=== PATIENT | male | born 1995 | race Caucasian/White ===

== ENCOUNTER 2020-09-02 07:54 | Outpatient (REF) | payer OTHER, SELFPAY ==
[2020-09-02 11:21] LABS: Free T4 (Free Thyroxine) 1.27 ng/dL (0.71-1.85); Thyroid Stimulating Hormone 2.44 mIU/mL (0.32-4.0)
== END 2020-09-02 07:55 | disposition home or self-care (01) ==
LOC: HO.10HDL 07:54
PROVIDERS: PCP Internal Medicine Medical Oncology; Visit Provider Internal Medicine
DX: E55.9 Vitamin D deficiency, unspecified (principal); E03.9 Hypothyroidism, unspecified; R91.1 Solitary pulmonary nodule; Z85.850 Personal history of malignant neoplasm of thyroid
CPT/HCPCS: 84439; 84443

== ENCOUNTER 2020-10-12 08:31 | Outpatient (REF) | payer OTHER, SELFPAY ==
--- NOTE | 2020-10-12 08:48 | US_ITS ---
EXAMINATION: US SOFT TISSUE HEAD AND NECK CLINICAL INFORMATION: History of malignant neoplasm of thyroid. Status post thyroidectomy. COMPARISON: None TECHNIQUE: Routine imaging of the anterior neck was performed. FINDINGS: RIGHT NECK: 1. Level 5A lymph node measuring 1.0 x 0.33 x 0.90 cm appears normal. 2. Level 2 lymph node measuring 2.0 x 0.54 x 1.4 cm and appears normal. 3. Level 2 lymph node measuring 0.60 x 0.25 x 0.52 cm and appears normal. 4. Level 3 lymph node measuring 0.80 x 0.30 x 0.80 and appears normal. 5. Level 1B lymph node measuring 1.1 cm and appearing normal. LEFT NECK: 1. Level 5A lymph node measuring 1.0 x 0.22 x 0.50 cm and appears normal. 2. Level 5B lymph node measuring 1.1 x 0.21 x 0.40 cm and appears normal. 3. Level 2 lymph node measuring 1.3 x 0.53 x 0.50 cm and appears normal. 4. Level 2 lymph node measuring 0.10 x 0.42 x 0.62 cm and appears normal. 5. Level 3 lymph node measuring 2.1 x 0.51 x 0.82 cm and appears normal. 6. Level 1B lymph node measuring 1.1 x 0.25 x 1.1 cm and appears normal. US/US soft tiss head and/or neck IMPRESSION: Multiple bilateral neck lymph nodes are normal size and have normal ultrasound appearance.
== END 2020-10-12 08:32 | disposition home or self-care (01) ==
LOC: HO.US 08:31
PROVIDERS: PCP Internal Medicine Medical Oncology; Visit Provider Internal Medicine
DX: Z85.850 Personal history of malignant neoplasm of thyroid (principal); E89.0 Postprocedural hypothyroidism
CPT/HCPCS: 76536

== ENCOUNTER → 2020-11-21 09:12 | Outpatient (BNVA) | payer OTHER, SELFPAY | PROVIDERS: PCP Internal Medicine Medical Oncology; Visit Provider Internal Medicine | DX: Z76.89 Persons encountering health services in other specified circumstances (principal) ==

== ENCOUNTER 2020-11-22 10:06 | Outpatient (REF) | payer OTHER, SELFPAY ==
[2020-11-22 14:46] LABS: Free T4 (Free Thyroxine) 1.18 ng/dL (0.71-1.85); Thyroid Stimulating Hormone 2.64 uIU/mL (0.32-4.0); Vitamin D 25-OH Total 27.5 ng/mL (>30)
== END 2020-11-22 10:07 | disposition home or self-care (01) ==
LOC: HO.10HDL 10:06
PROVIDERS: Visit Provider Internal Medicine
DX: E89.0 Postprocedural hypothyroidism (principal); E55.9 Vitamin D deficiency, unspecified
CPT/HCPCS: 36415; 82306; 84439; 84443

== ENCOUNTER 2020-11-23 08:19 | Outpatient (REF) | payer OTHER, SELFPAY ==
--- NOTE | 2020-11-23 08:22 | CT_ITS ---
EXAMINATION: CT CHEST WITHOUT CONTRAST CLINICAL INFORMATION: Pulmonary nodule. COMPARISON: None TECHNIQUE: Multidetector volumetric CT imaging of the chest was done. Axial MIP volume rendering provided. Sagittal and coronal reformatted images were obtained. This CT examination was performed using dose optimization techniques as appropriate, variously including the following: *Automated exposure control *Adjustment of mA and/or kV according to patient size (this includes techniques or standardized protocols for targeted exams where dose is matched to indication/reason for exam; i.e. extremities or head) *Use of iterative reconstruction technique DLP: 144 mGy-cm FINDINGS: TOY ASSEMBLER: Unremarkable chest. LUNGS: The lungs are well expanded and clear of acute pneumonic process. There is a 1 mm radiopaque calcified nodule left upper lobe axial image 193/5, 2 mm calcified nodule left anterior apex axial image 98/5, 2 mm calcified nodule left lower lobe lateral basal segment axial image 396/5. No noncalcified nodules seen. MEDIASTINUM: There are surgical gumaro seen in the thyroid bed likely from previous thyroid resection. The central trachea and bronchi are widely patent. Heart size and the great vessels are normal in caliber. No abnormal mediastinal or hilar lymph nodes seen. No pericardial effusion seen. PLEURA: There is no pleural effusion. No pleural mass or thickening. AXILLA: There are small shotty bilateral axillary lymph nodes. The chest wall appears unremarkable. UPPER ABDOMEN: Visualized liver, spleen, pancreas, and bilateral adrenal glands are unremarkable. OSSEOUS STRUCTURES: No lytic or sclerotic process seen. CT/CT chest wo con IMPRESSION: Multiple small calcified pulmonary nodules. No noncalcified nodules seen. No abnormal mediastinal or hilar adenopathy seen.
== END 2020-11-23 08:20 | disposition home or self-care (01) ==
LOC: HO.CT 08:19
PROVIDERS: PCP Internal Medicine Medical Oncology; Visit Provider Hospitalist
DX: R91.8 Other nonspecific abnormal finding of lung field (principal); R91.1 Solitary pulmonary nodule; Z85.850 Personal history of malignant neoplasm of thyroid
CPT/HCPCS: 71250

== ENCOUNTER → 2020-12-12 09:53 | Outpatient (BNVA) | payer OTHER, SELFPAY | PROVIDERS: PCP Internal Medicine Medical Oncology; Visit Provider Internal Medicine ==

== ENCOUNTER → 2020-12-13 09:56 | Outpatient (BNVA) | payer OTHER, SELFPAY | PROVIDERS: PCP Internal Medicine Medical Oncology; Visit Provider Internal Medicine Endocrinology, Diabetes & Metabolism ==

== ENCOUNTER 2020-12-14 07:52 | Outpatient (REF) | payer OTHER, SELFPAY ==
[2020-12-14 12:29] LABS: Thyroid Stimulating Hormone > 100.00 uIU/mL (0.32-4.0)
[2020-12-15 06:28] LABS: Thyroglobulin <0.1 ng/mL; Thyroglobulin Antibodies 101 IU/mL (< or = 1)
== END 2020-12-14 07:53 | disposition home or self-care (01) ==
LOC: HO.10HDL 07:52
PROVIDERS: Visit Provider Internal Medicine
DX: Z85.850 Personal history of malignant neoplasm of thyroid (principal)
CPT/HCPCS: 36415; 84432; 84443; 86800

== ENCOUNTER 2020-12-16 08:39 | Outpatient (REF) | payer OTHER, SELFPAY ==
[2020-12-19 22:08] LABS: Thyroglobulin <0.1 ng/mL; Thyroglobulin Antibodies 119 IU/mL (< or = 1)
== END 2020-12-16 08:40 | disposition home or self-care (01) ==
LOC: HO.10HDL 08:39
PROVIDERS: Visit Provider Internal Medicine
DX: Z85.850 Personal history of malignant neoplasm of thyroid (principal)
CPT/HCPCS: 36415; 84432; 84443; 86800

== ENCOUNTER → 2020-12-27 09:06 | Outpatient (BNVA) | payer OTHER, SELFPAY | PROVIDERS: PCP Internal Medicine Medical Oncology; Visit Provider Hospitalist ==

== ENCOUNTER 2021-01-04 08:43 | Outpatient (REF) | payer OTHER, SELFPAY ==
[2021-01-04 11:04] LABS: Free T4 (Free Thyroxine) 1.38 ng/dL (0.71-1.85); Thyroid Stimulating Hormone 0.57 uIU/mL (0.32-4.0)
== END 2021-01-04 08:44 | disposition home or self-care (01) ==
LOC: HO.10HDL 08:43
PROVIDERS: Visit Provider Internal Medicine
DX: E89.0 Postprocedural hypothyroidism (principal)
CPT/HCPCS: 36415; 84439; 84443

== ENCOUNTER → 2021-01-23 10:33 | Outpatient (BNVA) | payer OTHER, SELFPAY | PROVIDERS: PCP Internal Medicine Medical Oncology; Visit Provider Internal Medicine ==

== ENCOUNTER → 2021-03-16 08:31 | Outpatient (BNVA) | payer OTHER, SELFPAY | PROVIDERS: PCP Internal Medicine Medical Oncology; Visit Provider Internal Medicine ==

== ENCOUNTER 2021-03-16 11:18 | Outpatient (REF) | payer OTHER, SELFPAY ==
[2021-03-16 14:58] LABS: Free T4 (Free Thyroxine) 1.26 ng/dL (0.71-1.85); Thyroid Stimulating Hormone 0.63 uIU/mL (0.32-4.0); Vitamin D 25-OH Total 35.6 ng/mL (>30)
[2021-03-17 13:27] LABS: Thyroglobulin <0.1 ng/mL; Thyroglobulin Antibodies 104 IU/mL (< or = 1)
== END 2021-03-16 11:19 | disposition home or self-care (01) ==
LOC: HO.10HDL 11:18
PROVIDERS: Visit Provider Internal Medicine
DX: E55.9 Vitamin D deficiency, unspecified (principal); Z85.850 Personal history of malignant neoplasm of thyroid
CPT/HCPCS: 36415; 82306; 84432; 84439; 84443; 86800

== ENCOUNTER 2021-05-19 11:06 | Outpatient (REF) | payer OTHER, SELFPAY ==
[2021-05-19 12:19] LABS: Thyroid Stimulating Hormone 0.13 uIU/mL (0.32-4.0)
[2021-05-20 09:52] LABS: Thyroglobulin <0.1 ng/mL; Thyroglobulin Antibodies 83 IU/mL (< or = 1)
== END 2021-05-19 11:07 | disposition home or self-care (01) ==
LOC: HO.LAB 11:06
PROVIDERS: PCP Internal Medicine Medical Oncology; Visit Provider Internal Medicine
DX: Z85.850 Personal history of malignant neoplasm of thyroid (principal)
CPT/HCPCS: 36415; 84432; 84443; 86800

== ENCOUNTER → 2021-06-07 08:19 | Outpatient (BNVA) | payer OTHER, SELFPAY | PROVIDERS: PCP Internal Medicine Medical Oncology; Visit Provider Internal Medicine ==

== ENCOUNTER → 2021-07-10 10:24 | Outpatient (BNVA) | payer OTHER, SELFPAY | PROVIDERS: PCP Internal Medicine Medical Oncology; Visit Provider Internal Medicine ==

== ENCOUNTER → 2021-07-11 08:58 | Outpatient (BNVA) | payer OTHER, SELFPAY | PROVIDERS: PCP Internal Medicine Medical Oncology; Visit Provider Nurse Practitioner Gerontology ==

== ENCOUNTER 2021-07-12 08:43 | Outpatient (REF) | payer OTHER, SELFPAY ==
[2021-07-12 13:45] LABS: Thyroid Stimulating Hormone > 100.00 uIU/mL (0.32-4.0)
[2021-07-13 22:56] LABS: Thyroglobulin <0.1 ng/mL; Thyroglobulin Antibodies 77 IU/mL (< or = 1)
== END 2021-07-12 08:44 | disposition home or self-care (01) ==
LOC: HO.10HDL 08:43
PROVIDERS: Visit Provider Internal Medicine
DX: Z85.850 Personal history of malignant neoplasm of thyroid (principal)
CPT/HCPCS: 36415; 84432; 84443; 86800

== ENCOUNTER 2021-07-14 09:01 | Outpatient (REF) | payer OTHER, SELFPAY ==
[2021-07-14 11:12] LABS: Thyroid Stimulating Hormone 11.12 uIU/mL (0.32-4.0)
[2021-07-19 20:21] LABS: Thyroglobulin Antibodies 75 IU/mL (< or = 1)
[2021-07-19 20:26] LABS: Thyroglobulin <0.1 ng/mL
== END 2021-07-14 09:02 | disposition home or self-care (01) ==
LOC: HO.10HDL 09:01
PROVIDERS: Visit Provider Internal Medicine
DX: Z85.850 Personal history of malignant neoplasm of thyroid (principal)
CPT/HCPCS: 36415; 84432; 84443; 86800

== ENCOUNTER 2021-09-12 12:29 | Outpatient (REF) | payer OTHER, SELFPAY ==
[2021-09-12 14:57] LABS: Free T4 (Free Thyroxine) 1.14 ng/dL (0.71-1.85); Thyroid Stimulating Hormone 1.43 uIU/mL (0.32-4.0)
== END 2021-09-12 12:30 | disposition home or self-care (01) ==
LOC: HO.10HDL 12:29
PROVIDERS: Visit Provider Internal Medicine
DX: Z85.850 Personal history of malignant neoplasm of thyroid (principal)
CPT/HCPCS: 36415; 84439; 84443

== ENCOUNTER 2021-11-29 09:27 | Outpatient (REF) | payer OTHER, SELFPAY ==
--- NOTE | ~2021-11-29 | CT_ITS ---
EXAMINATION: CT CHEST WITHOUT CONTRAST CLINICAL INFORMATION: Follow-up pulmonary nodules COMPARISON: Previous chest CT November 2020 TECHNIQUE: Multidetector volumetric CT imaging of the chest was done. Axial MIP volume rendering provided. Sagittal and coronal reformatted images were obtained. This CT examination was performed using dose optimization techniques as appropriate, variously including the following: *Automated exposure control *Adjustment of mA and/or kV according to patient size (this includes techniques or standardized protocols for targeted exams where dose is matched to indication/reason for exam; i.e. extremities or head) *Use of iterative reconstruction technique DLP: 151 mGy-cm FINDINGS: MANAGER OF REGULATORY AFFAIRS: Unremarkable LUNGS: The small calcified pulmonary nodules are stable. Largest pulmonary nodule measures 3 mm the left upper lobe axial image 167 series 7 and left lower lobe axial image 530 series 7. No new nodule is seen. MEDIASTINUM: The thyroid gland has been removed. The mediastinum is normal. PLEURA: There is no pleural effusion. No pleural mass or thickening. AXILLA: There are small bilateral axillary lymph nodes. No enlarged lymph nodes or chest wall mass seen. UPPER ABDOMEN: Unremarkable. OSSEOUS STRUCTURES: Unremarkable. CT/CT chest wo con IMPRESSION: Stable small calcified pulmonary nodules probably representing calcified granulomas. Fleischner guidelines were followed.
== END 2021-11-29 09:28 | disposition home or self-care (01) ==
LOC: HO.CT 09:27
PROVIDERS: PCP Internal Medicine Medical Oncology; Visit Provider Hospitalist
DX: R91.8 Other nonspecific abnormal finding of lung field (principal); E89.0 Postprocedural hypothyroidism; Z85.850 Personal history of malignant neoplasm of thyroid
CPT/HCPCS: 71250

== ENCOUNTER → 2021-12-27 08:55 | Outpatient (BNVA) | payer OTHER, SELFPAY | PROVIDERS: PCP Internal Medicine Medical Oncology; Visit Provider Hospitalist ==

== ENCOUNTER 2022-03-09 09:53 | Outpatient (REF) | payer OTHER, SELFPAY ==
[2022-03-09 12:10] LABS: Thyroid Stimulating Hormone 0.81 uIU/mL (0.32-4.0)
[2022-03-12 18:26] LABS: Thyroglobulin Antibodies 84 IU/mL (< or = 1)
[2022-03-12 21:31] LABS: Thyroglobulin <0.1 ng/mL
== END 2022-03-09 09:54 | disposition home or self-care (01) ==
LOC: HO.HMGCLDS 09:53
PROVIDERS: Visit Provider Internal Medicine
DX: Z85.850 Personal history of malignant neoplasm of thyroid (principal)
CPT/HCPCS: 36415; 84432; 84439; 84443; 86800

== ENCOUNTER → 2022-03-12 09:49 | Outpatient (BNVA) | payer OTHER, SELFPAY | PROVIDERS: PCP Internal Medicine Medical Oncology; Visit Provider Internal Medicine | DX: Z13.89 Encounter for screening for other disorder (principal) ==

== ENCOUNTER 2022-06-27 16:20 | Outpatient (REF) | payer OTHER, SELFPAY ==
--- NOTE | ~2022-06-27 | US_ITS ---
EXAMINATION: US SOFT TISSUE NECK CLINICAL INFORMATION: Personal history of malignant neoplasm of thyroid. COMPARISON: Soft tissue head and neck 10/12/2020. Ultrasound soft tissue head/neck thyroid dated 11/24/2019. TECHNIQUE: Ultrasound of the neck soft tissues is performed with high- frequency villanueva-scale imaging and color Doppler. FINDINGS: THYROID BED: Prior thyroidectomy. No residual thyroid tissue demonstrated in the thyroid bed. No cystic or solid nodules demonstrated in the thyroid bed. RIGHT NECK SOFT TISSUES: Scattered architecturally normal nodes are present. The nodes show normal fatty hilus, normal cortical thickness, and no cystic change or calcification. No abnormal color flow. The largest nodes are as follows: Level 2: 1.0 x 0.3 x 0.6 cm. Normal bernie architecture. Previously measured 0.6 x 0.2 x 0.5 cm. Level 3: 2.7 x 0.9 x 0.9 cm. Abnormal bernie architecture. Not seen previously. Level 3: 1.6 x 0.4 x 0.7 cm. Normal bernie architecture. Previously measured 0.9 x 0.4 x 0.4 cm. Level 3: 0.9 x 0.4 x 0.4 cm. Normal bernie architecture. Level 4: 1.1 x 0.3 x 0.4 cm. Normal bernie architecture. Level 5A: Measures 0.8 x 0.3 x 0.3 cm. Normal bernie architecture. Level 5B: 1.1 x 0.4 x 0.5 cm. Normal bernie architecture. LEFT NECK SOFT TISSUES: Scattered architecturally normal nodes are present. The nodes show normal fatty hilus, normal cortical thickness, and no cystic change or calcification. No abnormal color flow. The largest nodes are as follows: Level 2: 4.2 x 0.9 x 1.1 cm. Abnormal bernie architecture. Level 3: 1.9 x 0.4 x 0.4 cm. Abnormal bernie architecture. Level 4: 1.7 x 1.6 x 0.6 cm. Abnormal bernie architecture. US/US soft tiss head and/or neck IMPRESSION: 1. No residual thyroid seen in the thyroid bed following thyroidectomy. There are 3 abnormal-appearing left neck lymph nodes, the largest measuring 4.2 cm level 2. Of several lymph nodes seen in the right neck level 3 right neck lymph node measuring 2.7 cm has abnormal architecture.We can biopsy by Ultrasound. 2. If clinically indicated further evaluation of the neck soft tissues and nodes may be performed with CT soft tissue neck with intravenous contrast.
== END 2022-06-27 16:21 | disposition home or self-care (01) ==
LOC: HO.US 16:20
PROVIDERS: Visit Provider Internal Medicine
DX: Z85.850 Personal history of malignant neoplasm of thyroid (principal)
CPT/HCPCS: 76536

== ENCOUNTER 2022-09-14 06:11 | Outpatient (REF) | payer OTHER, SELFPAY ==
[2022-09-14 12:40] LABS: Free T4 (Free Thyroxine) 1.21 ng/dL (0.71-1.85); Thyroid Stimulating Hormone 0.69 uIU/mL (0.32-4.0)
[2022-09-17 21:36] LABS: Thyroglobulin <0.1 ng/mL; Thyroglobulin Antibodies 66 IU/mL (< or = 1)
== END 2022-09-14 06:12 | disposition home or self-care (01) ==
LOC: HO.HMGCLDS 06:11
PROVIDERS: PCP Internal Medicine Medical Oncology; Visit Provider Internal Medicine
DX: E89.0 Postprocedural hypothyroidism (principal)
CPT/HCPCS: 36415; 84432; 84439; 84443; 86800

== ENCOUNTER 2022-10-26 07:46 | Outpatient (REF) | payer OTHER, SELFPAY ==
--- NOTE | ~2022-10-26 | CT_ITS ---
EXAMINATION: CT CHEST WITHOUT CONTRAST CLINICAL INFORMATION: Solitary pulmonary nodule. COMPARISON: CT chest 11/29/2021 TECHNIQUE: Multidetector volumetric CT imaging of the chest was done. Axial MIP volume rendering provided. Sagittal and coronal reformatted images were obtained. This CT examination was performed using dose optimization techniques as appropriate, variously including the following: *Automated exposure control *Adjustment of mA and/or kV according to patient size (this includes techniques or standardized protocols for targeted exams where dose is matched to indication/reason for exam; i.e. extremities or head) *Use of iterative reconstruction technique DLP: 147 mGy-cm FINDINGS: GUEST ROOM INSPECTOR: Unremarkable. LUNGS: The lungs are well-expanded and clear of acute pneumonic process. There are small scattered calcified pulmonary nodules. Largest 2 mm pulmonary nodule left lower lobe axial image 52/4 and and 3 mm calcified nodule left upper lobe, axial image 121/6. No noncalcified nodules seen. MEDIASTINUM: Central trachea and the bronchi is widely patent. There are small gumaro in the region of thyroid gland likely previous resection. No abnormal size mediastinal or hilar lymph nodes seen. There is residual thymus in the anterior mediastinum. Heart size and the great vessels are normal caliber. There is no pericardial effusion. CORONARY ARTERY CALCIFICATION: None visualized on this study. PLEURA: There is no pleural effusion. No pleural mass or thickening. AXILLA: There are small shotty lymph nodes in bilateral axilla. The chest wall is unremarkable. UPPER ABDOMEN: Visualized liver, spleen, pancreas and bilateral adrenal glands unremarkable. OSSEOUS STRUCTURES: Unremarkable. CT/CT chest wo IV con IMPRESSION: 1. Small calcified pulmonary nodules likely granulomas. No noncalcified new nodules seen. 2. No abnormal mediastinal or axillary lymphadenopathy. Fleischner guidelines were followed.
== END 2022-10-26 07:47 | disposition home or self-care (01) ==
LOC: HO.CT 07:46
PROVIDERS: Visit Provider Hospitalist
DX: R91.1 Solitary pulmonary nodule (principal)
CPT/HCPCS: 71250

== ENCOUNTER → 2022-10-29 08:55 | Outpatient (BNVA) | payer OTHER, SELFPAY | PROVIDERS: PCP Internal Medicine Medical Oncology; Visit Provider Internal Medicine | DX: Z85.850 Personal history of malignant neoplasm of thyroid (principal) | CPT/HCPCS: 96372 ==

== ENCOUNTER → 2022-10-30 08:57 | Outpatient (BNVA) | payer OTHER, SELFPAY | PROVIDERS: PCP Internal Medicine Medical Oncology; Visit Provider Internal Medicine Endocrinology, Diabetes & Metabolism | DX: Z85.850 Personal history of malignant neoplasm of thyroid (principal) | CPT/HCPCS: 96372 ==

== ENCOUNTER 2022-10-31 07:52 | Outpatient (REF) | payer OTHER, SELFPAY ==
[2022-10-31 11:53] LABS: Thyroid Stimulating Hormone > 100.00 uIU/mL (0.32-4.0)
[2022-11-21 13:24] LABS: Thyroglobulin Antibody 44 IU/mL (<=1); Thyroglobulin LC/MS/MS <0.4 ng/mL (Athyrotic: <0)
== END 2022-10-31 07:53 | disposition home or self-care (01) ==
LOC: HO.10HDL 07:52
PROVIDERS: Visit Provider Internal Medicine
DX: Z85.850 Personal history of malignant neoplasm of thyroid (principal)
CPT/HCPCS: 36415; 84432; 84443; 86800

== ENCOUNTER 2022-11-02 08:42 | Outpatient (REF) | payer OTHER, SELFPAY ==
[2022-11-02 11:58] LABS: Thyroid Stimulating Hormone 6.94 uIU/mL (0.32-4.0)
[2022-11-22 13:03] LABS: Thyroglobulin Antibody 45 IU/mL (<=1); Thyroglobulin LC/MS/MS <0.4 ng/mL (Athyrotic: <0)
== END 2022-11-02 08:43 | disposition home or self-care (01) ==
LOC: HO.10HDL 08:42
PROVIDERS: Visit Provider Internal Medicine
DX: Z85.850 Personal history of malignant neoplasm of thyroid (principal)
CPT/HCPCS: 36415; 84432; 84443; 86800

== ENCOUNTER 2022-11-29 07:59 | Outpatient (REF) | payer OTHER, SELFPAY ==
--- NOTE | 2022-11-29 08:42 | P.BOP_ITS ---
Brief Operative Note Date of Service: 11/29/22 Pre-op diagnosis: History of thyroid cancer Procedure: EXAMINATION: US Cervical lymph node mapping CLINICAL INFORMATION: History of thyroid cancer, S/P total thyroidectomy COMPARISON: Prior TECHNIQUE: Linear transducer villanueva-scale and color Doppler examination with attention to the region of the thyroid. FINDINGS: SIZE: Measurements of the thyroid lobes and nodules are given in sagittal, anteroposterior and transverse dimensions respectively. No residual tissue within the thyroid bed. There is a 1.4 cm lymph node within the left level II region. This has good reniform shape with a fatty hilum present. No other abnormal lymph nodes identified. Surgeon: Mara Lebron, DO Was an Entry Table Operator used for this Procedure?: No Estimated blood loss (mL): 0
== END 2022-11-29 08:00 | disposition home or self-care (01) ==
LOC: HO.US 07:59
PROVIDERS: PCP Internal Medicine Medical Oncology; Visit Provider Internal Medicine
DX: R59.0 Localized enlarged lymph nodes (principal)
CPT/HCPCS: 76536

== ENCOUNTER 2022-12-13 10:09 | Outpatient (REF) | payer OTHER, SELFPAY ==
[2022-12-13 14:19] LABS: Free T4 (Free Thyroxine) 1.23 ng/dL (0.71-1.85); Thyroid Stimulating Hormone 0.84 uIU/mL (0.32-4.0)
[2022-12-24 18:09] LABS: Thyroglobulin Antibody 45 IU/mL (<=1); Thyroglobulin LC/MS/MS <0.4 ng/mL (Athyrotic: <0)
== END 2022-12-13 10:10 | disposition home or self-care (01) ==
LOC: HO.10HDL 10:09
PROVIDERS: Visit Provider Internal Medicine
DX: E89.0 Postprocedural hypothyroidism (principal); E55.9 Vitamin D deficiency, unspecified; Z85.850 Personal history of malignant neoplasm of thyroid
CPT/HCPCS: 36415; 84432; 84439; 84443; 86800

== ENCOUNTER 2023-11-13 15:29 | Outpatient (AMB) | payer OTHER, SELFPAY ==
--- NOTE | 2023-11-13 15:29 | MHC.OFFVIS ---
Intake Intake Visit Reasons: BPH N40.1 Intake Note: New Patient presents for initial visit for vasectomy consult Urology Medications: none Blood Thinner: none Children#0 Expected Children#0 Cartridge Loader Required: No Accompanied by: Self / Same As Patient Allergies No Known Allergies [No Known Allergies*] Allergy (Verified 11/13/23 16:13) Medication List - Last Reconciled 11/13/23 by LAUREL Mosqueda- cholecalciferol (vitamin D3) 50 mcg PO DAILY levothyroxine 150 mcg PO DAILY HPI HPI Comments History of Present Illness Details Prashant is a very pleasant 28-year-old male patient of Dr. Forbes. He has a past medical history of pulmonary nodules, vitamin-D deficiency, hypothyroidism, and history of thyroid cancer. He presents to the office today for a - vasectomy evaluation Vasectomy evaluation The patient presents for vasectomy consultation.? 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 Patient education has been provided via AUA video, via printed information, risks of failure, recovery time, bruising and potential pain syndrome have been stressed Discussion today focused on the presence of vasectomy and the risks, benefits and alternatives that are available. Vasectomy as intended as a permanent form of control. Printed information and literature was provided to the patient. Overall there is a one in 2500 failure rate. This can occur at any time after vasectomy. Risks were discussed highlighting hematoma, spermatocele, epididymal congestion, development of sperm antibodies, and development of chronic pain estimated between 1-5%. The procedure was reviewed in detail. Anatomical diagrams of the male genitalia were used to explain the location of the vas deferens. The vas deferens will be transected, the proximal end will be cauterized, a metal clip would be applied to separate the 2 vas deferens ends. It was explained the procedure will be done in the office and takes approximately 10-15 minutes. Less common problems that arise with vasectomy include hematoma, bleeding, allergic reaction to anesthetic, epididymal infection, epididymal congestion, scrotal discomfort, spermatic leak, spermatic granuloma and the possibility of antisperm antibodies. He understands these risks and wishes to proceed. Consent was signed at the office today. He also understands that it takes 12 weeks for sperm to fully clear the system. He will need to provide a semen sample at 12 weeks and if this is not clear a 2nd sample at 16 weeks. Medical clearance to stop using protection will only be provided if he satisfies published criteria for sperm clearance. [facility] Medical History Cervical lymphadenopathy Pulmonary nodules Pulmonary nodule Vitamin D deficiency Hypothyroidism History of thyroid cancer Surgical History Hx of total thyroidectomy Hx of tonsillectomy Family History Father Thyroid disease Mother No problems noted. Social History Alcohol intake: current Patient Tobacco Use Status: Never used Tobacco Substance Use Type: Marijuana Review of Systems Const All systems reviewed & are unremarkable except as noted in HPI and below Reports as per HPI Eyes Reports no additional complaints ENT Reports no additional complaints Card Reports no additional complaints Resp Reports no additional complaints GI Reports no additional complaints Reports as per HPI Musc Reports no additional complaints Neuro Reports no additional complaints Psych Reports no additional complaints Endo Reports as per HPI Dejuan/Lymph Reports no additional complaints Aller/Immun Reports no additional complaints Physical Exam Const General: cooperative, healthy appearing, comfortable, no acute distress, well developed, alert and awake Nutritional Appearance: thin Orientation/consciousness: patient oriented x3 Limitations: no limitations HEENT Head: Yes normal to inspection, Yes normocephalic and Yes atraumatic Ears: hearing grossly normal bilaterally Eyes General: appearance normal, both eyes and all related structures Neck Neck: Yes normal visual inspection and Yes trachea midline Chest Chest palpation & inspection: normal inspection of the chest Resp Effort & Inspection: normal respiratory effort and able to speak in complete sentences Cardio Rate: regular rate GI Inspection: Yes normal to inspection General: Yes no CVA tenderness Back/Spine/Pelvis Back: no CVA tenderness Skin General skin exam: no rashes or lesions noted Neuro General: patient oriented x3 Extrem General: Yes normal to inspection Psych Appearance: grossly normal and well kempt Mental Status: mental status grossly normal Speech and movement: Normal speech and movement present and Clear speech present Affect: normal affect Attitude: cooperative Thought process: Normal thought process present Thought content: Normal thought content present Insight: Good insight present (Psych) Judgement: Good judgement present (Psych) Results AMB Urinalysis, Automated UA Leukoctes 0 Josue/uL Last Edit by [email or web address] on 11/13/23 15:56 UA Nitrite Negative Last Edit by Thinkrevel[employer] on 11/13/23 15:56 UA Urobilinogen 0.2 mg/dL Last Edit by [employer] on 11/13/23 15:56 UA Protein 0 mg/dL Last Edit by [employer] on 11/13/23 15:56 UA pH 6.0 Last Edit by [employer] on 11/13/23 15:56 UA Blood 10 David/uL Last Edit by [employer] on 11/13/23 15:56 UA Specific [place] 1.030 Last Edit by [employer] on 11/13/23 15:56 UA Ketone Negative Last Edit by [employer] on 11/13/23 15:56 UA Bilirubin 0 mg/dL Last Edit by AskU on 11/13/23 15:56 UA Glucose 0 mg/dL Last Edit by AskU on 11/13/23 15:56 Results Reviewed Results Reviewed: Laboratory Last Values Urine pH (Auto) 6.0 11/13/23 15:31 Specific [place] (Auto) 1.030 11/13/23 15:31 Urine Protein (Auto) 0 mg/dL 11/13/23 15:31 Glucose (UA)(Auto) 0 mg/dL 11/13/23 15:31 Urine Ketones (Auto) Negative 11/13/23 15:31 Urine Blood (Auto) 10 David/uL 11/13/23 15:31 Urine Nitrite (Auto) Negative 11/13/23 15:31 Urine Bilirubin (Auto) 0 mg/dL 11/13/23 15:31 Urine Urobilinogen (Auto) 0.2 mg/dL 11/13/23 15:31 Leukocyte Esterase (Auto) 0 Josue/uL 11/13/23 15:31 Assessment & Plan Assessment & Plan (1) Anxiety about health: Code(s): R45.89 - Other symptoms and signs involving emotional state (2) Vasectomy evaluation: Code(s): Z30.09 - Encounter for other general counseling and advice on contraception Plan In office urinalysis results reviewed with the patient today; as noted above. Discussed at length risks and benefits of vasectomy; as noted above. All questions were answered Prescriptions provided; specific instructions discussed Will schedule for vasectomy with Dr. Castro as discussed Follow up s/p Dr. Castro's orders; or sooner with any issues, concerns, or questions Orders: Orders AMB Urinalysis Automated Today Z13.9 - Encounter for screening, unspecified Medications: New hydrocodone-acetaminophen 5-325 mg Partial Fill upon patient request. 1 tab PO Q8H PRN 10 tabs 0RF pain N20.0 - Calculus of kidney diazepam (Valium) take one tab when arrive for procedure 2 mg PO DAILY 2 tabs 0RF anxiety R45.89 - Other symptoms and signs involving emotional state Patient Instructions: The patient had an opportunity to ask questions regarding the treatment plan. All questions were answered. Physical exam, labs, and imaging were discussed and reviewed in detail. As well as risks, benefits, and discussion of treatment choices. No major barriers to understanding were identified. The patient expressed understanding and agreement with the above treatment plan. The patient was made aware they should contact our office by phone for worsening of their current condition, the appearance of new symptoms, or with any questions or concerns. Compliance is encouraged with any medications and follow up testing that is ordered. It is a privilege to be allowed the opportunity to participate in? your urological care.? Again, if you have any questions or concerns If you have any questions or concerns please do not hesitate to contact me. The office is [phone]. This note is constructed using voice recognition software. While every effort has been made to ensure accuracy diaper machine tender errors may have been included. Yours sincerely, AMANDA Mosqueda Coding Level of Care Code New Pt Level 4 (79686) Diagnoses Anxiety about health R45.89 Vasectomy evaluation Z30.09
== END 2023-11-13 16:05 | disposition home or self-care (01) ==
PROVIDERS: PCP Internal Medicine Medical Oncology; Visit Provider Nurse Practitioner Family
DX: R45.89 Other symptoms and signs involving emotional state (principal); Z30.09 Encounter for other general counseling and advice on contraception
CPT/HCPCS: 99204

== ENCOUNTER → 2023-11-13 15:29 | Outpatient (BNVA) | payer OTHER, SELFPAY | PROVIDERS: PCP Internal Medicine Medical Oncology; Visit Provider Nurse Practitioner Family | DX: Z30.09 Encounter for other general counseling and advice on contraception (principal); F41.8 Other specified anxiety disorders | CPT/HCPCS: 81003 ==

== ENCOUNTER 2024-03-04 13:52 | Outpatient (AMB) | payer OTHER, SELFPAY ==
--- NOTE | 2024-03-04 14:02 | MHC.OFFVIS ---
Intake Visit Reasons: vasectomy Allergies No Known Allergies [No Known Allergies*] Allergy (Verified 11/13/23 16:13) HPI Comments Details: Prashant is a very pleasant 28-year-old male patient of Dr. Forbes. He has a past medical history of pulmonary nodules, vitamin-D deficiency, hypothyroidism, and history of thyroid cancer. He presents to the office today for a - vasectomy procedure Vasectomy procedure The patient presents for vasectomy procedure.? He is currently with a partner however not He has fathered -?no children The youngest child is - no children His partner is aware and permissive for a vasectomy Current form of control is condoms [facility] Medical History Cervical lymphadenopathy Pulmonary nodules Pulmonary nodule Vitamin D deficiency Hypothyroidism History of thyroid cancer Surgical History Hx of total thyroidectomy Hx of tonsillectomy Family History Father Thyroid disease Mother No problems noted. Social History Alcohol intake: current Patient Tobacco Use Status: Never used Tobacco Substance Use Type: Marijuana Office Procedures Vasectomy Details: Preoperative diagnosis: Anxiety regarding Postoperative diagnosis: Anxiety regarding unplanned Procedure: Bilateral vasectomy Informed consent had been completed. Preoperative and postoperative instructions were provided to the patient. The patient has transportation to home identified at the completion of the procedure. Anti-anxiolytic prescription medication had been taken after consent verification and all questions answered. Tylenol with Codeine pain medication was also provided. The penis was elevated using a rubber band that was attached to the patient's shirt. Both vasa were palpated through the skin using a 3 finger technique and the penoscrotal junction was prepped with Betadine. After Betadine application the left vas was elevated using a 3 finger grasping technique. 1% lidocaine was used to create a subdermal bubble. Further anesthetic was then advanced using the 25-gauge needle along the vasa in a proximal fashion. Approximately 2 minutes were allowed to for local anesthetic uptake. Using the sharp spreading instrument the scrotal skin was spread longitudinally in line with the vasa until the subdermal layer had been divided. The vasa was then elevated from the scrotum using a ring clamp. Care was taken to elevate the superior portion of the vasa by rotating the ring clamp in a caudad direction. The battery powered cautery was used to divide the vasal sheath in a longitudinal direction on the exposed vasa and to strip the vasal sheath from the vasa. A 2nd narrower ring clamp was placed on the exposed vas and used to lift the vas from the vasal sheath. so it grasped the elevated vas. The cautery was used to divide vasal attachments and allow full exposure of a small loop of vasa. The sharp spreading instrument was then used to create a tunnel under the vasa and spread to allow the blood vessels of the vasa to retract from the vasa. A mosquito clamp was placed on the proximal portion of the vas. The battery-powered cautery was used to make a partial division in the proximal vas and then inserted in order to cauterize the proximal end of the vas. This was then cut and allowed to retract into the vasal sheath. The mosquito was then used to twist the vasa 180 degrees creating a fascial interposition. Using a 4-0 chromic suture the fascial interposition was sutured closed. The distal portion of the vas was then cut in order to obtain a segment of vasa. The vasa were allowed to retract back into the scrotum. A small snap was then used to approximate the skin edges and allow hemostasis without placement of a suture. A similar procedure was repeated on the right side. He tolerated the procedure well. Triple antibiotic was applied. A gauze was applied. An ice pack was applied to assist with minimizing swelling. Postoperative instructions were confirmed. He understands the need to continue to use control methods. A semen sample should be brought for inspection under the microscope in 10-12 weeks. CPT 09798 Vasectomy performed by: Abundio Castro Informed consent given: Yes Informed consent signed: Yes Time out checklist: patient, procedure, site marked/identified, positioning of patient, supplies available, allergies confirmed and team agrees on procedure Anesthetic used: other Specimens: vas segments not sent to pathology 21653 - Vasectomy Assessment & Plan Assessment & Plan (1) Anxiety about health: Code(s): R45.89 - Other symptoms and signs involving emotional state Category: Medical Plan Procedure performed today Coding Level of Care Code Procedure Only Diagnoses Anxiety about health R45.89 CPT Codes Office Procedure - CPT: 63167 - Vasectomy ([id number])
== END 2024-03-04 14:44 | disposition home or self-care (01) ==
PROVIDERS: PCP Internal Medicine Medical Oncology; Visit Provider Urology
DX: Z30.2 Encounter for sterilization (principal); R45.89 Other symptoms and signs involving emotional state
CPT/HCPCS: 55250

== ENCOUNTER → 2024-03-04 13:52 | Outpatient (BNVA) | payer OTHER, SELFPAY | PROVIDERS: PCP Internal Medicine Medical Oncology; Visit Provider Urology | DX: Z30.2 Encounter for sterilization (principal); F41.8 Other specified anxiety disorders | CPT/HCPCS: 55250 ==

== ENCOUNTER 2024-06-02 12:56 | Outpatient (AMB) | payer SELFPAY ==
[2024-06-02 12:58] VITALS: BP 152/84; PULSE 46; BMI 23.7
--- NOTE | 2024-06-02 12:58 | MHC.OFFVIS ---
Vital Signs 06/02/24 12:58 Height 6 ft Weight 174 lb 13.225 oz BMI 23.7 BP 152/84 H Blood Pressure Location Lt brachial Position Sitting Pulse 46 L Pulse Source Pulse Oximeter Intake Visit Reasons: Thyroid Cancer-confirmed Intake Note: Patient present today for thyroid cancer follow up visit. 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 The patient last saw Dr. Ann on 12/13/2022 He was seen in the [facility] ED 10/27/19 after a MVI. He had a CT of the Cervical Spine which revealed a prominent R lobe of the thyroid with the question of a 1.9 cm nodule. He was subsequently referred to Endocrinology. He subsequently underwent a dedicated thyroid US which revealed a 2.0 cm R mid pole thyroid US. He underwent FNA biopsy 12/17/2019 of his 2 R sided thyroid nodules with Cytology of the R mid Lateral 1.7 cm nodule positive for PTC ([place] Category ), and cytology of the R mid medial 1.3 cm nodule suspicious for PTC ([place] Category V). He underwent a total thyroidectomy 01/22/[address] Eder Mcallister at [facility]. Official surgical path revealed a 2.7 cm focus of PTC, classic type, with 1/16 lymph nodes positive for metastasis. There was no evidence of angio or neural invasion. The tumor was encapsulated. This was [id number]. He was treated postoperatively with 30 millicurries of I131 05/25/2020. This was thyrogen stimulated with labs 05/25/2020 TSH >100, TG <0.1, but TG antibodies were positive at 363. His posttreatment WBS completed 06/03/2020 revealed no abnormal uptake. A PET CT was completed 06/13/2020 to evaluate for non I131 avid disease. This revealed no FDG positive disease, but there was mention of a 3 mm solid nodule within the Left lower lobe of the lung. He was referred to Pulmonology for this and is following with them for surveillance. He has no complaints today. He is taking Levothyroxine 150 mcg PO daily and reports good compliance with this. He had repeat thyrogen stimulated labs completed 12/14/2020 with TSH >100, TG <0.01, and TGAb = 119. Nonstimulated labs completed 05/19/2021 with TSH 0.13, TG <0.1 and TG antibodies 83. Had a thyrogen stimulated WBS 07/14/2021 with only physiologic uptake and no evidence of metastatic disease. Labs 07/12/2021 TSH >100, TG <0.1 and TG Ab 73. He had a repeat US of the neck which revealed multiple abnormal appearing lymph nodes on the L. I repeated his US head and neck myself shortly after with no identification of any abnormal appearing lymph nodes. He then underwent a thyrogen stimulated WBS 11/02/2022 with no evidence of iodine avid disease. His labs 10/31/2022 with TSH >100, TG <0.4 and TG antibodies stable at 45. Denies any symptoms of hyper or hypothyroidism. Denies any compressive symptoms. Denies any lumps or bumps. Denies any weight loss. PET-CT 06/13/2020: Physiologic FDG uptake within the brain parenchyma, salivary glands, vocal cords and tonsillar soft tissue. Prior total thyroidectomy. No abnormal focus of FDG uptake within the neck. No enlarged FDG avid cervical lymph nodes identified. There is a 3 mm peripheral solid nodule in the lateral left lower lobe of the lung. This is below the resolution of PET. The lungs are otherwise clear. No suspicious pulmonary nodules. No abnormal focus of FDG uptake within the thorax. No enlarged mediastinal or hilar lymph nodes. Physiologic FDG uptake within the liver, spleen, kidneys and bowel. No enlarged FDG avid lymph nodes identified. No abnormal FDG uptake within the osseous or cutaneous structures. Impression: 1. No evidence of FDG avid malignancy. 2. No FDG avid focus in the thyroid bed. 3. Nonspecific 3 mm nodule in the lateral left lower lobe of the lung is below the resolution of PET. US Head and Neck: 06/27/2022 THYROID BED: Prior thyroidectomy. No residual thyroid tissue demonstrated in the thyroid bed. No cystic or solid nodules demonstrated in the thyroid bed. RIGHT NECK SOFT TISSUES: Scattered architecturally normal nodes are present. The nodes show normal fatty hilus, normal cortical thickness, and no cystic change or calcification. No abnormal color flow. The largest nodes are as follows: Level 2: 1.0 x 0.3 x 0.6 cm.? Normal bernie architecture. Previously measured 0.6 x 0.2 x 0.5 cm. Level 3: 2.7 x 0.9 x 0.9 cm.? Abnormal bernie architecture. Not seen previously. Level 3: 1.6 x 0.4 x 0.7 cm. Normal bernie architecture. Previously measured 0.9 x 0.4 x 0.4 cm. Level 3: 0.9 x 0.4 x 0.4 cm. Normal bernie architecture. Level 4: 1.1 x 0.3 x 0.4 cm. Normal bernie architecture. Level 5A: Measures 0.8 x 0.3 x 0.3 cm. Normal bernie architecture. Level 5B: 1.1 x 0.4 x 0.5 cm. Normal bernie architecture. LEFT NECK SOFT TISSUES: Scattered architecturally normal nodes are present. The nodes show normal fatty hilus, normal cortical thickness, and no cystic change or calcification. No abnormal color flow. The largest nodes are as follows: Level 2: 4.2 x 0.9 x 1.1 cm.? Abnormal bernie architecture. Level 3: 1.9 x 0.4 x 0.4 cm.? Abnormal bernie architecture. Level 4: 1.7 x 1.6 x 0.6 cm. Abnormal bernie architecture. Labs: Laboratory Tests 10/31/22 07:58 TSH > 100.00 H he is currently on levothyroxine 150 mcg. Last neck ultrasound showed abnormal lymph nodes level 2, level 3 and level 4 COUNTS INCLUDE 234 BEDS AT THE [facility] Medical History Cervical lymphadenopathy Pulmonary nodules Pulmonary nodule Vitamin D deficiency Hypothyroidism History of thyroid cancer Surgical History Hx of total thyroidectomy Hx of tonsillectomy Family History Father Thyroid disease Mother No problems noted. Social History Alcohol intake: current Patient Tobacco Use Status: Never used Tobacco Substance Use Type: Marijuana Physical Exam Vital Signs: Last Vital Signs Pulse 46 L 06/02/24 12:58 BP 152/84 H 06/02/24 12:58 BMI result Body Mass Index 23.7 Const Other: Healed scar status post thyroidectomy. There are no palpable lymphadenopathy Assessment & Plan Assessment & Plan (1) History of thyroid cancer: Code(s): Z85.850 - Personal history of malignant neoplasm of thyroid Category: Medical Plan: This is a 28-year-old white male with a history of papillary carcinoma underwent a total thyroidectomy 01/22/[address] Eder Mcallister at [facility] Official surgical path revealed a 2.7 cm focus of PTC, classic type, with 1/16 lymph nodes positive for metastasis. There was no evidence of angio or neural invasion. The tumor was encapsulated. This was [id number]. He was treated postoperatively with 30 millicurries of I131 05/25/2020. He has had undetectable thyroglobulin by LC MS but does have positive anti-thyroglobulin antibodies. He appears to be clinically and biochemically euthyroid on levothyroxine 150 mcg Plan is to continue the current management. Will have patient follow up with Dr. Mejias and expert neck ultrasound who starting here in June 2024 to perform a neck ultrasound to evaluate the reported abnormal lymph node Coding Level of Care Code Est Pt Level 3 (04760) Diagnoses History of thyroid cancer Z85.850
== END 2024-06-02 13:24 | disposition home or self-care (01) ==
PROVIDERS: PCP Internal Medicine Medical Oncology; Visit Provider Internal Medicine Endocrinology, Diabetes & Metabolism
DX: Z85.850 Personal history of malignant neoplasm of thyroid (principal)
CPT/HCPCS: 99213

== ENCOUNTER → 2024-06-02 12:56 | Outpatient (BNVA) | payer OTHER, SELFPAY | PROVIDERS: PCP Internal Medicine Medical Oncology; Visit Provider Internal Medicine Endocrinology, Diabetes & Metabolism ==

== ENCOUNTER 2024-07-23 11:44 | Outpatient (AMB) | payer BC, SELFPAY ==
--- NOTE | 2024-07-23 11:44 | MHC.OFFVIS ---
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 Forbes. He has a past medical history of pulmonary nodules, vitamin-D deficiency, hypothyroidism, and history of thyroid cancer. He presents to the office today for a - vasectomy procedure Telemedicine Evaluation 15 min Consultation DoximInfusionsoft Barbra Video Orwell kit sample negative Minimal issues following procedure Three-week some discomfort but otherwise well tolerated Vasectomy procedure The patient presents for vasectomy procedure.? He is currently with a partner however not He has fathered -?no children The youngest child is - no children His partner is aware and permissive for a vasectomy Current form of control is condoms [facility] Medical History Cervical lymphadenopathy Pulmonary nodules Pulmonary nodule Vitamin D deficiency Hypothyroidism History of thyroid cancer Surgical History Hx of total thyroidectomy Hx of tonsillectomy Family History Father Thyroid disease Mother No problems noted. Social History Alcohol intake: current Patient Tobacco Use Status: Never used Tobacco Substance Use Type: Marijuana Review of Systems Const All systems reviewed & are unremarkable except as noted in HPI and below Reports no additional complaints Resp Reports no additional complaints GI Reports no additional complaints Reports as per HPI Musc Reports no additional complaints Physical Exam Telemedicine evaluation Appropriate responses Regular breathing rate and rhythm HEENT Head: Yes normal to inspection Ears: hearing grossly normal bilaterally Eyes General: appearance normal, both eyes and all related structures Neck Neck: Yes normal visual inspection Chest Chest palpation & inspection: normal inspection of the chest Resp Effort & Inspection: normal respiratory effort and able to speak in complete sentences Telehealth Telehealth Telehealth Platform: [employer] Location of provider rendering services: practice address Location of patient: address on file Patient Identification confirmed using: Name, : Yes Telehealth method: video Patient verbally consented to treatment: Yes Patient verbally consented to billing insurance company: Yes Patient informed of any privacy concerns related to visit: Yes Minutes spent on Phone/Video with Pt.: 10 Assessment & Plan Assessment & Plan (1) Anxiety about health: Code(s): R45.89 - Other symptoms and signs involving emotional state Category: Medical Plan P.r.n. Patient Instructions: Imaging studies, laboratory and physical exam results were discussed and reviewed in detail. No major barriers to patient understanding were identified. An opportunity to ask questions regarding the treatment plan was provided. All questions were answered. The patient expressed understanding and agreement with the above treatment plan. The patient is aware they should contact our office by phone for worsening of their current condition or the appearance of new urologic symptoms. Compliance is encouraged with any medications and followup testing that is ordered. It is a privilege to participate in the urologic care of your patient. If you have any questions or concerns regarding treatment for the above conditions, or other urologic issues, please do not hesitate to contact me. The office telephone contact is [phone]. This note is constructed using voice recognition software. While every effort has been made to ensure accuracy shift nurse manager errors may have been included. Yours sincerely, Dr Abundio Castro MD, JOSE ALEJANDRO [facility] - Urology Providers of Expert, Compassionate Care for the Genitourinary System Coding Level of Care Code Tele Est Pt Level 2 (63561) Diagnoses Anxiety about health R45.89
== END 2024-07-23 12:17 | disposition home or self-care (01) ==
LOC: HO.HUSH 11:44
PROVIDERS: PCP Internal Medicine Medical Oncology; Visit Provider Urology
DX: R45.89 Other symptoms and signs involving emotional state (principal)
CPT/HCPCS: 99024

== ENCOUNTER → 2024-07-23 11:44 | Outpatient (BNVA) | payer BC, SELFPAY | PROVIDERS: PCP Internal Medicine Medical Oncology; Visit Provider Urology ==

== ENCOUNTER 2024-08-04 09:56 | Outpatient (AMB) | payer BC, SELFPAY ==
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
[2024-08-04 09:59] VITALS: BP 130/70; PULSE 49; BMI 24.4
== END 2024-08-04 10:32 | disposition home or self-care (01) ==
PROVIDERS: PCP Internal Medicine Medical Oncology; Visit Provider Student in an Organized Health Care Education/Training Program
DX: Z85.850 Personal history of malignant neoplasm of thyroid (principal); E89.0 Postprocedural hypothyroidism
CPT/HCPCS: 99214

== ENCOUNTER → 2024-08-04 09:56 | Outpatient (BNVA) | payer SELFPAY | PROVIDERS: PCP Internal Medicine Medical Oncology; Visit Provider Student in an Organized Health Care Education/Training Program ==

== ENCOUNTER 2024-08-06 06:54 | Outpatient (REF) | payer BC, SELFPAY ==
[2024-08-06 10:57] LABS: Free T4 (Free Thyroxine) 0.89 ng/dL (0.71-1.85); Thyroid Stimulating Hormone 8.26 uIU/mL (0.32-4.0)
[2024-08-07 11:04] LABS: Thyroglobulin <0.1 ng/mL; Thyroglobulin Antibodies 32 IU/mL (< or = 1)
[2024-08-13 16:48] LABS: Thyroglobulin Antibody 30 IU/mL (<=1); Thyroglobulin LC/MS/MS <0.4 ng/mL (Athyrotic: <0)
== END 2024-08-06 06:55 | disposition home or self-care (01) ==
LOC: HO.HMGCLDS 06:54
PROVIDERS: PCP Internal Medicine Medical Oncology; Visit Provider Student in an Organized Health Care Education/Training Program
DX: Z85.850 Personal history of malignant neoplasm of thyroid (principal)
CPT/HCPCS: 36415; 84432; 84439; 84443; 86800

== ENCOUNTER 2024-08-11 14:26 | Outpatient (REF) | payer BC, SELFPAY ==
--- NOTE | ~2024-08-11 | US_ITS ---
EXAMINATION: US THYROID CLINICAL INFORMATION: Personal history of malignant neoplasm of thyroid. COMPARISON: Ultrasound-guided thyroid biopsy dated 11/29/2022. Ultrasound soft tissue neck 06/27/2022. TECHNIQUE: Linear transducer grayscale and color Doppler examination of the thyroid bed and surrounding soft tissue. FINDINGS: Submitted for interpretation on October 22, 2024. There are scattered hypoechoic ovoid shaped nodules at the surgical bed, the largest measures 3.5 cm. Some of this structures demonstrating a fatty hilum. US/US soft tiss head and/or neck IMPRESSION: Probable lymph nodes in the surgical site the largest measures 3.5 cm. Recommend contrast-enhanced soft tissue neck CT versus MRI.. Consider a thyroid nuclear scan Electronically signed by: Walt Watson MD 10/22/2024 12:53 PM OLIVIA
== END 2024-08-11 14:27 | disposition home or self-care (01) ==
LOC: HO.US 14:26
PROVIDERS: PCP Internal Medicine Medical Oncology; Visit Provider Student in an Organized Health Care Education/Training Program
DX: R59.0 Localized enlarged lymph nodes (principal); Z85.850 Personal history of malignant neoplasm of thyroid
CPT/HCPCS: 76536

== ENCOUNTER → 2024-08-11 14:28 | Outpatient (BNV) | payer BC, SELFPAY | PROVIDERS: PCP Internal Medicine Medical Oncology; Visit Provider Radiology Diagnostic Radiology | DX: Z85.850 Personal history of malignant neoplasm of thyroid (principal) | CPT/HCPCS: 76536 ==

== ENCOUNTER 2025-01-30 07:39 | Outpatient (REF) | payer BC, SELFPAY ==
--- OUTSIDE RECORDS SUMMARY | 2025-01-30 07:41 | XMS_ITS ---
Author Organization Dajuan Forbes III, MD Address [address] [address] Care Team Providers Care Tissue Technologist Name Role Phone Dajuan Forbes Primary Care Provider Reason For Referral Reason Consult and Treat Diagnosis 1 Papillary carcinoma of thyroid (C73) Referral Organization Dajuan Forbes III, MD Referring Provider First Name Dajuan Referring Provider Last Name Leidy Referring Provider Speciality Internal M edicine Referred Provider [facility] Referred Provider Specialty Endocrinolog y General Notes Jeanna Bianchi 2023 11:07:49 AM EDT > Faxed with last progress note and referral. Referral Priority Routine Referral Appointment Date 06/02/2024 REASON FOR VISIT Referral Social History Sex Assigned At : Social History Observation Description Sex Assigned At Male Encounters Encounter Location Date Provider Diagnosis Dajuan Forbes III, MD [address] [place] [address] [place] [address] 05/11/2024 Dajuan Forbes Plan Of Treatment Referrals Referral Date Details 05/12/2024 05/12/2024, Consult and Treat, [facility] Next Appt Details Provider Name:Dajuan Forbes, 09/22/2025 03:00:00 PM, [address] [place] [address] [place], [address], Progress Notes * Prashant FARRELLDOB:1995 ( 28 yo M)Acc No.[id number]:05/11/2024 Patient:?Prashant Farrell :1995???Age:28 Y???Sex:Male Address:[address] [place] [address], [facility] [address] , [place], [address] Subjective: * Chief Complaints: * ???Referral * Medical History:? * Surgical History:? * Hospitalization/Major Diagno stic Procedure:? * Medications:? Objective: Assessment: Plan: * Treatment: * Procedure Codes:? * true * Date:? Generated for Dagoberto linares/Saran/Tinysmitting on:?01/30/2025 07:41 AM EDT Consultation Request Notes Referral Date Referring Provider Referred Provider Not es 05/12/2024 Leidy [facility], [facility] Consult and Treat
--- OUTSIDE RECORDS SUMMARY | 2025-01-30 07:41 | XMS_ITS ---
Author Organization Dajuan Forbes III, MD Address [address] [place] [address] Care Team Providers Care Chemical Machine Tender Name Role Phone Dajuan Forbes Primary Care Provider REASON FOR VISIT Rx [...] Provider Diagnosis Dajuan Forbes III, MD [address] [place] [address] [place] [address] 03/03/2024 Dajuan Forbes Benign prostatic hyperplasia without [...] 30 days Next Appt Details Provider Name:Dajuan Forbes, 09/22/2025 03:00:00 PM, [address] [place] [address] [place], [address], Progress Notes * Prashant FARRELLDOB:1995 ( 28 yo M)Acc No.[id number]:03/03/2024 Patient:?Prashant Farrell :1995???Age:28 Y???Sex:Male Address:[address] [place] [address], [facility] [address] , [place], [address] * Refills? Refill Levothyroxine Sodium Tablet, 150 MCG, Orally, 30 Tablet, 1 tablet in the morning on an empty stomach, Once a day, 30 days, Refills=3 * true * Date:? Generated for Dagoberto linares/Saran/Tinysmitting on:?01/30/2025 07:41 AM EDT
--- OUTSIDE RECORDS SUMMARY | 2025-01-30 07:42 | XMS_ITS | Patient Health Record ---
Author Organization Dajuan Forbes III, MD Address [address] [place] [address] Care Team Providers Care Septic Tank Servicer Name Role Phone Dajuan Forbes Primary Care Provider Allergies Allergen (clinical drug ingredient) Drug/Non Drug Allergy documented on EMR Reaction Allergy Type Onset Date Status No Known Drug Allergy Unknown Drug Allergy Active Results Component Value Reference Range Notes Free T4 (Free Thyroxine) Reviewed date:08/10/2024 05:54:00 AM Interpretation: Performing Lab:[facility], [address] [place] [phone] Notes/Report: Free T4 (Free Thyroxine) 0.89 0.71-1.85 ng/dL Thyroid Stimulating Hormone Reviewed date:08/10/2024 05:54:00 AM Interpretation: Performing Lab:[facility], [address] [place] [phone] Notes/Report: Thyroid Stimulating Hormone 8.26 0.32-4.0 uIU/mL Note: A sustained TSH level above 2.5 uIU/mL may warrant further investigation. TSH 3rd Generation ([facility]) Thyroglobulin Reviewed date:08/24/2024 07:53:42 AM Interpretation: Performing Lab:[address] [address] Notes/Report: Thyroglobulin <0.1 Reference Range: Intact Thyroid 2.8-40.9 Athyrotic <0.1 Note: Abnormal flagging is based on the reference interval for patients with intact thyroid. This test was performed using the Eligio Susannah chemiluminescent method. Values obtained from different assay methods cannot be used interchangeably. Thyroglobulin levels, regardless of value, should not be interpreted as absolute evidence of the presence or absence of disease. Thyroglobulin Comment See Below Thyroglobulin antibodies (TGAB) interfere with thyroglobulin (TG) assays; therefore, TGAB assay should always be performed in conjunction with a TG assay. For additional information, please refer to http://Free-lance.ru.TapRush/faq/EAY976 (This link is being provided for informational/ educational purposes only.) THIS TEST WAS PERFORMED AT: [facility] [address] [place] [phone] SARAH SCRUGGS MD Thyroglobulin Antibodies Reviewed date:08/24/2024 07:53:42 AM Interpretation: Performing Lab:[facility], [address] [place] [phone] Notes/Report: Thyroglobulin Antibodies 32 < or = 1 IU/mL THIS TEST WAS PERFORMED AT: [facility] [address] [place] [phone] SARAH SCRUGGS MD Thyroglobulin Tumor Marker Reviewed date:08/24/2024 07:53:42 AM Interpretation: Performing Lab:[facility], [address] [place] [phone] Notes/Report: Thyroglobulin Antibody 30 <=1 IU/mL This Thyroglobulin antibody test was performed using the Eligio Susannah Chemiluminescent method. Values obtained from different assay methods cannot be used interchangeably. Thyroglobulin antibody levels, regardless of value, should not be interpreted as absolute evidence of the presence or absence of disease. Thyroglobulin LC/MS/MS <0.4 Athyrotic : <0 ng/mL Reference range applies to differentiated thyroid cancer patients following treatment. The presence of measurable thyroglobulin indicates the presence of thyroglobulin-producing thyroid tissue. Clinical correlation is advised. This Thyroglobulin test was performed by tandem mass spectrometry (LC/MS/MS) and does provide quantitative measurements of thyroglobulin in the presence of anti-Tg antibodies. Values obtained from different assay methods cannot be used interchangeably. Thyroglobulin levels, regardless of value, should not be interpreted as absolute evidence of the presence or absence of disease. This test was developed and its analytical performance characteristics have been determined by [facility]. It has not been cleared or approved by FDA. This assay has been validated pursuant to the CLIA regulations and is used for clinical purposes. Test performed by [facility] [address] [place] [address] Wage And Salary Specialist: Roxy Mittal MD,PHD,JOSE ALEJANDRO Test Reported by [facility], [facility], [id number] [place] [address] Wade Howard M.D., Ph.D., Director of Laboratories , [place] [id number] THIS TEST WAS PERFORMED AT: [email or web address] [address] WADE HOWARD MD,PHD Thyroglobulin Level TNP US soft tiss head and/or nec k Reviewed date:11/04/2024 08:32:52 AM Interpretation: Performing Lab: Notes/Report: [address] [address] Ultrasound Report Signed Patient: Prashant Solano MR#: [id number] : 1995 Acct:[id number] Age/Sex: 29 / M ADM Date: 08/11/24 Loc: HO.US Attending Dr: Neela Mejias MD Ordering Physician: Neela Mejias MD Date of Service: 08/11/24 Procedure(s): US soft tiss head and/or neck Accession Number(s): [id number] cc: Dajuan Forbes MD; Neela Mejias MD EXAMINATION: US THYROID CLINICAL INFORMATION: Personal history of malignant neoplasm of thyroid. COMPARISON: Ultrasound-guided thyroid biopsy dated 11/29/2022. Ultrasound soft tissue neck 06/27/2022. TECHNIQUE: Linear transducer grayscale and color Doppler examination of the thyroid bed and surrounding soft tissue. FINDINGS: Submitted for interpretation on October 22, 2024. There are scattered hypoechoic ovoid shaped nodules at the surgical bed, the largest measures 3.5 cm. Some of this structures demonstrating a fatty hilum. US/US soft tiss head and/or neck IMPRESSION: Probable lymph nodes in the surgical site the largest measures 3.5 cm. Recommend contrast-enhanced soft tissue neck CT versus MRI.. Consider a thyroid nuclear scan Electronically signed by: Walt Watson MD 10/22/2024 12:53 PM EST RP Dictated By: Walt Bowen MD Signed By: <Electronically signed by Walt Garza MD in [place]> 10/22/24 1253 DD/ 1444 TD/TT: 08/11/24 1459 Package [place]: [place] [id number] Ultrasound Report Signed Patient: Prashant Solano MR#: [id number] : 1995 Acct:[id number] Age/Sex: 29 / M ADM Date: 08/11/24 Loc: HO.US Attending Dr: Neela Mejias MD Ordering Physician: Neela Mejias MD Date of Service: 08/11/24 Procedure(s): US sof t tiss head and/or neck Accession Number(s): [id number] cc: Dajuan Forbes MD; Neela Mejias MD EXAMINATION: US THYROID CLINICAL INFORMATION: Personal history of malignant neoplasm of thyroid. COMPARISON: Ultrasound-guided thyroid biopsy dated 11/29/2022. Ultrasound soft tissue neck 06/27/2022. TECHNIQUE: Linear transducer grayscale and color Doppler examination of the thyroid bed and surrounding soft tissue. FINDINGS: Submitted for interpretation on October 22, 2024. There are scattered hypoechoic ovoid shaped nodules at the surgical bed, the largest measures 3.5 cm. Some of this structures demonstrating a fatty hilum. US/US soft tiss head and/or neck IMPRESSION: Probable lymph nodes in the surgical site the largest measures 3.5 cm. Recommend contrast-enhanced soft tissue neck CT versus MRI.. Consider a thyroid nuclear scan Electronically jimmy d by: Walt Watson MD 10/22/2024 12:53 PM EST RP Dictated By: Walt Olivares MD Signed By: <Electronically signed by Walt Garza MD in OV> 10/22/24 1253 DD/ 1444 TD/TT: 08/11/24 1453 Package [place]yer: Reason For Referral Reason Consult and Treat Diagnosis 1 Papillary carcinoma of thyroid (C73) Referral Organization Dajuan Forbes III, MD Referring Provider First Name Dajuan Referring Provider Last Name Leidy Referring Provider Speciality Internal M edicine Referred Provider [facility] Referred Provider Specialty Endocrinolog y General Notes Jeanna Bianchi 2023 11:07:49 AM EDT > Faxed with last progress note and referral. Referral Priority Routine Referral Appointment Date 06/02/2024 Medications Medication SIG (Take, Route, Frequency, Duration) [...] nonsmoker Additional Findings: Tobacco Non-User Aggressive non-smoker Alcohol Screen Question Answer Notes Did you have a drink contain ing alcohol in the past year? Yes How often did you have a dri nk containing alcohol in the past year? Monthly or less (1 point) How many drinks did you have on a typical day when you were drinking in the past year? 1 or 2 drinks (0 point) How often did you have 6 or more drinks on one occasion in the past year? Never (0 point) Points 1 Interpretation Negative Problems Problem Type SNOMED Code ICD Code Onset Dates Problem Status W/U Status Risk Notes Problem 286391714 Overweight (E66.3) Active confirmed His body mass index is slightly over 25. We discussed diet and nutrition today. Problem 673292789 Right anterior knee pain (M25.561) Active confirmed He was educated about patellofemoral syndrome. He will strengthen his quadriceps. He will notify me if the pain returns. Problem 313157231 Papillary carcinoma of thyroid (C73) Active confirmed He is followed regularly by endocrinology. He remains in remission without symptoms. Problem [id number] Patellofemoral syndrome of right knee (M22.2X1) Active confirmed He has completed the physical therapy and the pain in his knee has resolved. Vital Signs Heart Rate 78 /min 09/21/2024 Temperature 99.5 degrees Fahrenheit 09/21/2024 Blood pressure diastolic 75 mm Hg 09/21/2024 Height 70 in 09/21/2024 Blood pressure systolic 132 mm Hg 09/21/2024 Weight 177 lbs 09/21/2024 BMI 25.39 kg/m2 09/21/2024 Encounters Encounter Location Date Provider Diagnosis Dajuan Forbes III, MD [address] [place] [address] [place] [phone] 09/21/2024 Dajuan Forbes Papillary carcinoma of thyroid C73 ; Patellofemoral syndrome of right knee M22.2X1 ; Right anterior knee pain M25.561 and Overweight E66.3 Dajuan Forbes III, MD [address] [place] [address] [place] [phone] 03/03/2024 Dajuan Forbes Benign prostatic hyperplasia without lower urinary tract symptoms N40.0 Dajuan Forbes III, MD [address] [place] [address] [address] [place] [phone] 05/11/2024 Dajuan Forbes Assessments Encounter Date Diagnosis (ICD Code) Assessment Notes Treat ment Notes Treatment Clinical Notes 09/21/2024 Papillary 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 He remains in remission without symptoms. 09/21/2024 Patellofemoral syndrome of right knee (ICD-10 - M22.2X1) He has completed the physical therapy and the pain in his knee has resolved. 03/03/2024 Benign prostatic hyperplasia without lower urinary tract symptoms (ICD-10 - N40.0) At this time he denies any nocturia. 09/21/2024 Right anterior knee pain (ICD-10 - M25.561) He was educated about patellofemoral syndrome. He will strengthen his quadriceps. He will notify me if the pain returns. 09/21/2024 Overweight (ICD-10 - E66.3) His body mass index is slightly over 25. We discussed diet and nutrition today. Plan Of Treatment Pending Test Test Name Order Date PROFILE, FASTING (COMPREHENSIVE METABOLI C) 09/18/2023 PROFILE, FASTING (COMPREHENSIVE METABOLI C) 09/21/2024 TSH (THYROID STIMULATING HORMONE) 2023 PSA, TOTAL 09/18/2023 CBC w DIFF 09/21/2024 CBC WITH AUTO DIFF 09/18/2023 Lipid Panel 09/21/2024 Lipid Panel 09/18/2023 Free T4 (Free Thyroxine) 09/21/2024 Next Appt Details Provider Name:Dajuan Forbes, 09/22/2025 03:00:00 PM, [address] [place] [address] , ALDO [place]eth, [place], [address], Insurance Providers Payer Name Payer Address Payer Phone Subscriber Number Group Number Insured Name Patient Relationship to Insured Coverage Start Date Coverage End Date [employer] [address] [place], [place] [id number] [phone] [id number] Prashant Solano Self - patient is the insured Medical (General) History Medical History History ICD Code Hypothyroidism E03.9 papillary thyroid carcinoma October with thyroidectomy right knee pain Thyroid Cancer detected in 2019 Surgical History Surgery Date(Month/Year) [facility] 01/29 20 dental extractions No history Hospitalization History Reason Date(Month/Year) No history
[2025-01-30 12:54] LABS: Free T4 (Free Thyroxine) 1.28 ng/dL (0.71-1.85); Thyroid Stimulating Hormone 0.31 uIU/mL (0.32-4.0)
== END 2025-01-30 07:40 | disposition home or self-care (01) ==
LOC: HO.HMGCLDS 07:39
PROVIDERS: PCP Internal Medicine Medical Oncology; Visit Provider Student in an Organized Health Care Education/Training Program
DX: E89.0 Postprocedural hypothyroidism (principal); Z85.850 Personal history of malignant neoplasm of thyroid
CPT/HCPCS: 36415; 84439; 84443

== ENCOUNTER 2025-02-01 09:55 | Outpatient (AMB) | payer SELFPAY ==
[2025-02-01 09:57] VITALS: BP 120/80; PULSE 51; O2SAT 99; BMI 24.7
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
== END 2025-02-01 10:20 | disposition home or self-care (01) ==
LOC: HO.ENCR 09:56
PROVIDERS: PCP Internal Medicine Medical Oncology; Visit Provider Student in an Organized Health Care Education/Training Program
DX: Z85.850 Personal history of malignant neoplasm of thyroid (principal); E89.0 Postprocedural hypothyroidism
CPT/HCPCS: 99214

== ENCOUNTER → 2025-02-01 09:55 | Outpatient (BNVA) | payer BC, SELFPAY | PROVIDERS: PCP Internal Medicine Medical Oncology; Visit Provider Student in an Organized Health Care Education/Training Program | DX: E89.0 Postprocedural hypothyroidism (principal); Z85.850 Personal history of malignant neoplasm of thyroid | CPT/HCPCS: 99212 ==

== ENCOUNTER 2025-04-30 13:54 | Outpatient (REF) | payer BC, SELFPAY ==
--- OUTSIDE RECORDS SUMMARY | 2024-09-21 10:45 | XMS_ITS ---
Author Organization Dajuan Forbes III, MD Address [address] [place] [address] Care Team Providers Care Outside Sales Inspector Name Role Phone Dajuan Forbes Primary Care Provider Allergies Allergen (clinical drug [...] Problem Status W/U Status Risk Notes Problem 988845323 Overweight (E66.3) Active confirmed His body mass index is slightly over 25. We discussed diet and nutrition today. Problem 396227719 Right anterior knee pain (M25.561) Active confirmed [...] Date Provider Diagnosis Dajuan Forbes III, MD [address] [place] [address] [place] [address] 09/21/2024 Dajuan Forbes Papillary carcinoma of thyroid [...] exam review labs, Routine check-up Provider Name:Dajuan Forbes, 05/04/2025 11:30:00 AM, [address] [place] [address] [address], [place], [phone], Provider Name:Dajuan Forbes, 09/22/2025 03:00:00 PM, [address] [place] [address] [place], [address], Progress Notes * Rory FARRELL:1995 ( 29 yo M)Acc No.[id number]:09/21/2024 Progress Notes Patient: Prashant MILES Provider: Zuleika Forbes MD :1995 A ge:29 Y S ex:Male Date:09/21/2024 Address:[address] [place] [address], [facility] [address] , [facility] Subjective: * Chief Complaints: * A nnual [...] and was reviewed in the database at [facility]. It was stable. He will have [...] * Medical History: * [facility] * Hospitalization/Major Diagno [...] History: T obacco Use: T obacco Use/Smoking Funmi arcos is a n onsmoker A dditional Findings: Tobacco Non-User A ggressive non-smoker Katya reyez was born in [facility]. He does not smoke tobacco. He [...] Forbes MD Date: 11/21/2023 Generated for Dagoberto linares/Saran/Wilveritting on: 0 04/30/2025 01:56 PM EDT History and Physical Notes * HPI (History [...] days?: No Have you travelled internationally in [facility] last 10 days?: No Have you [...]
--- NOTE | ~2025-04-30 | XR_ITS ---
CLINICAL HISTORY: right hip pain 3 view, pelvis and right hip Comparison: None provided Findings: The bones are intact. No significant arthritic change. The soft tissues are unremarkable. IMPRESSION: No acute findings. This document has been electronically signed by: Humberto Joy MD on 05/01/2025 08:55:02
--- NOTE | ~2025-04-30 | XR_ITS ---
CLINICAL HISTORY: right leg pain --- Additional Notes or Special Instructions: W?O 2 view right femur Comparison: None provided Findings: Proximal femur is excluded from the field of view. No fractures or dislocations. No knee effusion. No significant arthritic change. No radiopaque foreign body. IMPRESSION: 1. Normal right femur This document has been electronically signed by: Humberto Joy MD on 05/01/2025 08:54:56
== END 2025-04-30 13:55 | disposition home or self-care (01) ==
LOC: HO.XRAY 13:54
PROVIDERS: Visit Provider Internal Medicine Medical Oncology
DX: M79.604 Pain in right leg (principal); M25.551 Pain in right hip
CPT/HCPCS: 73502; 73552

== ENCOUNTER → 2025-04-30 14:10 | Outpatient (BNV) | payer BC, SELFPAY | PROVIDERS: Visit Provider Specialist | DX: M25.551 Pain in right hip (principal); M79.604 Pain in right leg | CPT/HCPCS: 73502; 73552 ==

== ENCOUNTER 2025-08-24 15:54 | Outpatient (REF) | payer BC, SELFPAY ==
--- OUTSIDE RECORDS SUMMARY | 2024-03-03 05:48 | XMS_ITS ---
Author Organization Dajuan Forbes III, MD Address [address] [place] [address] Care Team Providers Care Staff Design Engineer Name Role Phone Dr. Dajuan Forbes III Primary Care Provider REASON FOR VISIT Rx Request Medications Medication SIG (Take, Route, Frequency, Duration) Notes Start Date End Date Status Levothyroxine Sodium 150 MCG 1 tablet in the morning on an empty stomach Orally Once a day for 30 days Active Social History Sex Assigned At : Social History Observation Description Sex Assigned At Male Encounters Encounter Location Date Provider Diagnosis Dajuan Forbes III, MD [address] [place] [address] [place] [address] 03/03/2024 Dajuan Forbes Benign prostatic hyperplasia without lower urinary tract symptoms N40.0 Assessments Encounter Date Diagnosis (ICD Code) Assessment Notes Treatment Notes Treatment Clinical Notes 03/03/2024 Benign prostatic hyperplasia without lower urinary tract symptoms (ICD-10 - N40.0) At this time he denies any nocturia. Plan Of Treatment Medication Medication Name Sig Start Date Stop Date Notes Levothyroxine Sodium 150 MCG 1 tablet in the morning on an empty stomach Orally Once a day for 30 days Next Appt Details Provider Name:Dajuan Forbes , 09/22/2025 03:00:00 PM, [address] [place] [address] [place], [address], Progress Notes * Prashant FARRELLDOB:1995 ( 28 yo M)Acc No.[id number]:03/03/2024 Patient: Gurdeep nick Prashant :1995 A ge:28 Y S ex:Male Address:[address] [place] [address], [facility] , [place], [address] * Refills Refill Levothyroxine Sodium Tablet, 150 MCG, Orally, 30 Tablet, 1 tablet in the morning on an empty stomach, Once a day, 30 days, Refills=3 * true * Date: Generated for Dagoberto linares/Saran/Melissa on: 06:28 PM EDT
--- OUTSIDE RECORDS SUMMARY | 2024-05-11 11:22 | XMS_ITS ---
Author Organization Dajuan Forbes III, MD Address [address] [place] [address] Care Team Providers Care Fudger Name Role Phone Dr. Dajuan Forbes III Primary Care Provider [phone] Reason For Referral Reason Consult and Treat Diagnosis 1 Papillary carcinoma of thyroid (C73) Referral Organization Dajuan Forbes III, MD Referring Provider First Name Dajuan Referring Provider Last Name Leidy Referring Provider Speciality Internal M edicine Referred Provider [facility], [facility] Referred Provider Specialty Endocrinolog y General Notes Jeanna Bianchi 2023 11:07:49 AM EDT > Faxed with last progress note and referral. Referral Priority Routine Referral Appointment Date 06/02/2024 REASON FOR VISIT Referral Social History Sex Assigned At : Social History Observation Description Sex Assigned At Male Encounters Encounter Location Date Provider Diagnosis Dajuan Forbes III, MD [address] [place] [address] [place] [id number] 05/11/2024 Dajuan Forbes Plan Of Treatment Referrals Referral Date Details 05/12/2024 05/12/2024, Consult and Treat, [facility] Next Appt Details Provider Name:Dajuan Forbes , 09/22/2025 03:00:00 PM, [address] [place] [address] [place], [id number], Progress Notes * Prashant FARRELLDOB:1995 ( 28 yo M)Acc No.[id number]:05/11/2024 Patient: Gurdeep Prashant romero :1995 A ge:28 Y S ex:Male Address:[address] [place] [address] , [place], [address] Subjective: * Chief Complaints: * R eferral * Medical History: * Surgical History: * Hospitalization/Major Diagno stic Procedure: * Medications: Objective: Assessment: Plan: * Treatment: * Procedure Codes: * true * Date: Generated for Elainai vijay/Saran/eTransmitting on: 06:28 PM EDT Consultation Request Notes Referral Date Referring Provider Referred Provider Not es 05/12/2024 Leidy [facility], [facility] Consult and Treat
--- OUTSIDE RECORDS SUMMARY | 2024-09-21 10:45 | XMS_ITS ---
Author Organization Dajuan Forbes III, MD Address [address] [place] [address] Care Team Providers Care Assembly Repairer Name Role Phone Dr. Dajuan Forbes III [...] Problem Status W/U Status Risk Notes Problem 913228404 Overweight (E66.3) Active confirmed His body mass index is slightly over 25. We discussed diet and nutrition today. Problem 959134436 Right anterior knee pain (M25.561) Active confirmed [...] Date Provider Diagnosis Dajuan Forbes III, MD [address] [place] [address] [address] [place] [address] 09/21/2024 Dajuan Larsenrne Papillary carcinoma of thyroid C73 ; Patellofemoral [...] labs, Routine check-up Provider Name:Dajuan Forbes , 09/22/2025 03:00:00 PM, [address] [place] [address] [address], [place], [address], Progress Notes * Rory FARRELL:1995 ( 29 yo M)Acc No.[id number]:09/21/2024 Progress Notes Patient: Prashant MILES Provider: Zuleika Forbes MD :1995 A ge:29 Y S ex:Male Date:09/21/2024 Address:[address] , [place], [id number] Subjective: * Chief Complaints: * A nnual [...] and was reviewed in the database at [facility]. It was stable. He will have comprehensive [...] Medical History: * Surgical History: t hyroidectomy [facility] 01/2020dental extractions No history * Hospitalization/Major [...] ggressive non-smoker Katya reyez was born in [facility]. He does not smoke tobacco. [...] Date: 11/21/2023 Generated for Dagoberto linares/Saran/Tinysmitting on: 06:28 PM EDT History and Physical Notes * [...] days?: No Have you travelled internationally in [facility] last 10 days?: No Have you [...]
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
--- OUTSIDE RECORDS SUMMARY | 2025-05-04 07:30 | XMS_ITS ---
Author Organization Dajuan Forbes III, MD Address [address] [place] [address] Care Team Providers Care Account Liaison Hospice Name Role Phone Dr. Dajuan Forbes III Primary Care Provider [phone] Allergies Allergen (clinical drug ingredient) Drug/Non Drug [...] Date Provider Diagnosis Dajuan Forbes III, MD [address] [place] [address] [place] [address] 05/04/2025 Dajuan Forbes Hematoma T14.8XXA ; Overweight [...] son: Annual Exam Provider Name:Dajuan Forbes , 09/22/2025 03:00:00 PM, [address] [place] [address] [place], [address], Progress Notes * Prashant FARRELLDOB:1995 ( 29 yo M)Acc No.[id number]:05/04/2025 Patient: Prashant MILES Provider: Zuleika Forbes MD :1995 A ge:29 Y S ex:Male Date:05/04/2025 Address:[address] [place] [address], [facility] Subjective: * Chief Complaints: [...] of provider rendering services: { ...} [address] [facility] [address] L ocation of patient: luh steve listed [...] * Medical History: * [facility] No [facility] * Hospitalization/Major Diagno [...] ggressive non-smoker Katya reyez was born in [facility]. He does not smoke tobacco. He is [...] MD Date: 0 05/04/2025 Generated for Dagoberto linares/Saran/Melissa on: 1 06:28 PM EDT History and Physical Notes * HPI (History of Present Illness) Category Sub-Category Detail Notes Telehealth Location of [facility] rendering services:: {...} [address] [place] [address] Location of patient:: address listed in demographics [...]
--- NOTE | ~2025-08-24 | US_ITS ---
EXAMINATION: US THYROID CLINICAL INFORMATION: Malignant neoplasm of thyroid.. Thyroidectomy 01/2020 COMPARISON: None available. TECHNIQUE: Linear transducer villanueva-scale and color Doppler examination with attention to the region of the thyroid. FINDINGS: [Bladder has been surgically removed with no residual thyroid seen. LYMPH NODES: RIGHT NECK: 1. Level 1B lymph node measures 1.3 x 0.3 x 1.2 cm. It has normal echogenic medulla. Previously measured 0.8 x 0.3 x 1 0.8 cm. 2. Level 3 lymph node measures 2.4 x 0.6 x 1.7 cm. There is normal echogenic medulla. Previously it measured 2.1 x 0.5 x 2.1 cm. 3. Level 5B lymph node measures 0.9 x 0.3 x 0.7 cm. It has normal echogenic medullary. It is new since the previous exam. 4. Level 3 lymph node measures 0.7 x 0.4 x 0.7 cm. It has normal echotexture. LEFT NECK: 1. Level 1B lymph node measures 1.3 x 0.4 x 1.3 cm. It has normal echotexture. Use it measured 1.4 x 0.4 x 1.2 cm. 2. Level 3 lymph node measures 3.6 x 0.6 x 1.3 cm. It has normal echotexture. Previously it measured 3.5 x 0.5 x 1.3 cm. No additional lymph nodes seen. US/US soft tiss head and/or neck IMPRESSION: Bilateral neck lymph nodes which are normal in echotexture and unchanged to previous exam 08/11/2024. No residual thyroid tissue visualized.. Electronically signed by: Willi Keith MD 08/25/2025 08:06 AM EDT
--- OUTSIDE RECORDS SUMMARY | 2025-08-24 18:29 | XMS_ITS | Patient Health Record ---
Author Organization Dajuan Forbes III, MD Address [address] [place] [place] [address] Care Team Providers Care Care Mgr Name Role Phone Dr. Dajuan Forbes III Primary Care Provider [phone] Allergies Allergen (clinical drug ingredient) Drug/Non Drug Allergy documented on EMR Reaction Allergy Type Onset Date Status No Known Drug Allergy Unknown Drug Allergy Active Results Component Value Reference Range Notes Free T4 (Free Thyroxine) Reviewed date:05/02/2025 05:47:51 PM Interpretation: Performing Lab:[facility], [address] [place] [address] Notes/Report: Free T4 (Free Thyroxine) 1.28 0.71-1.85 ng/dL Thyroid Stimulating Hormone Reviewed date:05/02/2025 05:47:51 PM Interpretation: Performing Lab:[facility], [address] [place] [address] Notes/Report: Thyroid Stimulating Hormone 0.31 0.32-4.0 uIU/mL TSH 3rd Generation ([facility]) XR hip RT w PEL1V Reviewed date:05/02/2025 05:47:51 PM Interpretation: Performing Lab: Notes/Report: [address] [address] XRay Report Signed Patient: Prashant Solano MR#: [id number] : 1995 Acct:[id number] Age/Sex: 29 / M ADM Date: 04/30/25 Loc: HO.XRAY Attending Dr: Dajuan Forbes MD Ordering Physician: Dajuan Forbes MD Date of Service: 04/30/25 Procedure(s): XR hip RT w PEL1V Accession Number(s): [id number] cc: Dajuan Forbes MD CLINICAL HISTORY: right [...] Humberto Joy MD in OV> 05/01/25854 DD/ 4 TD/TT: 05/01/25854 Gang Sawyer: [address] [address] XRay Report Signed Patient: Prashant Solano MR#: [id number] : 1995 Acct:[id number] Age/Sex: 29 / M ADM Date: 04/30/25 Loc: HO.XRAY Attending Dr: Dajuan Forbes MD Ordering Physician: Dajuan Forbes MD Date of Service: 04/30/25 Procedure(s): XR hip RT w PEL1V Accession Number(s): [id number] cc: Dajuan Forbes MD CLINICAL HISTORY: ri ght hip pain 3 view, pelvis and r ight hip Comparison: None provided Findings: The bones are intact. No significant arthr itic change. The soft tissues are unremarkable. IMPRESSION: No acute findings. This document has be en electronically signed by: Humberto Joy MD on 05/01/2025 08:55:02 Dictated By: Fabian Joy MD Signed By: <Electronically signed by Humberto Joy MD in OV> 05/01/2555 DD/ 4 TD/TT: 05/01/25854 Gang Sawyer: XR femur RT 2V Reviewed date:05/02/2025 05:47:51 PM Interpretation: Performing Lab: Notes/Report: [address] [address] XRay Report Signed Patient: Prashant Solano MR#: [id number] : 1995 Acct:[id number] Age/Sex: 29 / M ADM Date: 04/30/25 Loc: HO.XRAY Attending Dr: Dajuan Forbes MD Ordering Physician: Dajuan Forbes MD Date of Service: 04/30/25 Procedure(s): XR femur RT 2V Accession Number(s): [id number] cc: Dajuan Forbes MD CLINICAL HISTORY: right [...] Joy MD in OV> 05/01/25 0855 DD/ 3 TD/TT: 05/01/25 0854 Gang Sawyer: [place] [address] XRay Report Signed Patient: Prashant Solano MR#: [id number] : 1995 Acct:[id number] Age/Sex: 29 / M ADM Date: 04/30/25 Loc: HO.XRKATHYA Attending Dr: Dajuan Forbes MD Ordering Physician: Dajuan Forbes MD Date of Service: 04/30/25 Procedure(s): XR fem ur RT 2V Accession Number(s): [id number] cc: Dajuan Forbes MD CLINICAL HISTORY: ri ght leg pain --- Additional Notes or Special Instructions: W?O 2 view right femur Comparison: None provided Findings: Proximal femur is excluded from the field of view. No fractures or dislocations. No knee effusion. No significant arthr itic change. No radiopaque foreig n body. IMPRESSION: 1. Normal right femur This document has be en electronically signed by: Humberto Joy MD on 05/01/2025 08:54:56 Dictated By: Fabian Joy MD Signed By: <Electronically signed by Humberto Joy MD in OV> 05/01/25 0855 DD/ 3 TD/TT: 05/01/25853 Gang Sawyer: Reason For Referral No Information Medications Medication SIG (Take, Route, Frequency, Duration) [...] Problem Status W/U Status Risk Notes Problem 468123862 Overweight (E66.3) Active confirmed His body mass index is slightly over 25. We discussed diet and nutrition today. Problem 311096580 Right anterior knee pain (M25.561) Active confirmed He was educated about patellofemoral syndrome. He will strengthen his quadriceps. He will notify me if the pain returns. Problem 102847478 Papillary carcinoma of thyroid (C73) Active confirmed He is followed regularly by endocrinology. He remains in remission without symptoms. Problem 1660203237718275 Patellofemoral syndrome of right knee (M22.2X1) Active confirmed He has completed the physical therapy and the pain in his knee has resolved. Vital Signs Heart Rate 66 /min 04/30/2025 Temperature 97.5 degrees Fahrenheit 04/30/2025 Blood pressure diastolic 80 mm Hg 04/30/2025 Height 70 in 05/04/2025 Blood pressure systolic 137 mm Hg 04/30/2025 Weight 185 lbs 05/04/2025 BMI 26.54 kg/m2 05/04/2025 Encounters Encounter Location Date Provider Diagnosis Dajuan Forbes III, MD [address] [place] [address] [place] [address] 09/21/2024 Dajuan Forbes Papillary carcinoma of thyroid C73 ; Patellofemoral syndrome of right knee M22.2X1 ; Right anterior knee pain M25.561 and Overweight E66.3 Dajuan Forbes III, MD [address] [place] [address] [address] [place] [address] 04/30/2025 Dajuan Forbes Injury of right hip, initial encounter S79.911A ; Papillary carcinoma of thyroid C73 ; Patellofemoral syndrome of right knee M22.2X1 ; Overweight E66.3 and Right anterior knee pain M25.561 Dajuan Forbes III, MD [address] [place] [address] [address] [place] [address] 05/04/2025 Dajuan Forbes Hematoma T14.8XXA ; Overweight [...] pain in his knee has resolved. 04/30/2025 Papillary 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 He remains in remission without symptoms. 04/30/2025 Injury of right hip, initial encounter (ICD-10 - S79.911A) An x-ray has been ordered to rule out a small avulsion fracture. He has a hematoma and soft tissue injury. He will use heat rest and ibuprofen. He will avoid severe physical exertion for 1 week. Follow-up telehealth visit was arranged. 05/04/2025 Overweight (ICD-10 - E66.3) His body mass index is slightly over 25. We discussed diet and nutrition today. 05/04/2025 Hematoma (ICD-10 - T14.8XXA) He is feeling more mobile than the pain is decreasing. The ecchymosis has spread but the hematoma is smaller. He will refrain from exertion for 1 more week and then resume normal activities and office visits. 09/21/2024 Right anterior knee pain (ICD-10 - M25.561) He was educated about patellofemoral syndrome. He will strengthen his quadriceps. He will notify me if the pain returns. 04/30/2025 Patellofemoral syndrome of right knee (ICD-10 - M22.2X1) He has completed the physical therapy and the pain in his knee has resolved. 05/04/2025 Patellofemoral syndrome of right knee (ICD-10 - M22.2X1) He has completed the physical therapy and the pain in his knee has resolved. 09/21/2024 Overweight (ICD-10 - E66.3) His body mass index is slightly over 25. We discussed diet and nutrition today. 04/30/2025 Overweight (ICD-10 - E66.3) His body mass index is slightly over 25. We discussed diet and nutrition today. 05/04/2025 Papillary 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 He remains in remission without symptoms. 04/30/2025 Right anterior knee pain (ICD-10 - M25.561) He was educated about patellofemoral syndrome. He will strengthen his quadriceps. He will notify me if the pain returns. 05/04/2025 Right anterior knee pain (ICD-10 - M25.561) He was educated about patellofemoral syndrome. He will strengthen his quadriceps. He will notify me if the pain returns. Plan Of Treatment Pending Test Test Name Order Date PROFILE, FASTING (COMPREHENSIVE METABOLI C) 09/21/2024 PROFILE, FASTING (COMPREHENSIVE METABOLI C) 09/18/2023 TSH (THYROID STIMULATING HORMONE) 2023 PSA, TOTAL 09/18/2023 CBC w DIFF 09/21/2024 CBC WITH AUTO DIFF 09/18/2023 Lipid Panel 09/21/2024 Lipid Panel 09/18/2023 Free T4 (Free Thyroxine) 09/21/2024 Next Appt Details Provider Name:Dajuan Forbes , 09/22/2025 03:00:00 PM, [address] [place] [address] [address] [place], [facility] [address], Insurance Providers Payer Name Payer Address Payer Phone Subscriber Number Group Number Insured Name Patient Relationship to Insured Coverage Start Date Coverage End Date [facility] [address] [place], [place] [id number] Prashant Solano Self - patient is the insured Medical (General) History Medical History History ICD Code Hypothyroidism E03.9 papillary thyroid carcinoma October with thyroidectomy right knee pain Thyroid Cancer detected in 2019 Surgical History Surgery Date(Month/Year) No history dental extractions [facility] 01/29 20 Hospitalization History Reason Date(Month/Year) No history
== END 2025-08-24 15:55 | disposition home or self-care (01) ==
LOC: HO.US 15:54
PROVIDERS: PCP Internal Medicine Medical Oncology; Visit Provider Student in an Organized Health Care Education/Training Program
DX: Z85.850 Personal history of malignant neoplasm of thyroid (principal)
CPT/HCPCS: 76536

== ENCOUNTER → 2025-08-24 15:56 | Outpatient (BNV) | payer BC, SELFPAY | PROVIDERS: PCP Internal Medicine Medical Oncology; Visit Provider Radiology Diagnostic Radiology | DX: Z85.850 Personal history of malignant neoplasm of thyroid (principal) | CPT/HCPCS: 76536 ==

== ENCOUNTER 2025-10-30 11:51 | Outpatient (REF) | payer BC, SELFPAY ==
--- OUTSIDE RECORDS SUMMARY | 2024-05-11 10:22 | XMS_ITS ---
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 Dajuan Forbes III Primary Care Provider Reason For Referral Reason Consult and Treat Diagnosis 1 Papillary carcinoma of thyroid (C73) Referral Organization Dajuan Forbes III, MD Referring Provider First Name Dajuan Referring Provider Last Name Leidy Referring Provider Speciality Internal M edicine Referred Provider [facility], [facility] Referred Provider Specialty Endocrinolog y General Notes Jeanna Bianchi 2023 11:07:49 AM EDT > Faxed with last progress note and referral. Referral Priority Routine Referral Appointment Date 06/02/2024 REASON FOR VISIT Referral Social History Sex Assigned At : Social History Observation Description Sex Assigned At Male Encounters Encounter Location Date Provider Diagnosis Dajuan Forbes III, MD [address] [place] [address] [place] [address] 05/11/2024 Dajuan Forbes Plan Of Treatment Referrals Referral Date Details 05/12/2024 05/12/2024, Consult and Treat, [facility] Next Appt Details Provider Name:Dajuan Forbes , 11/12/2025 02:00:00 PM, [address] [place] [address] [place], [address], Progress Notes * Prashant FARRELLDOB:1995 ( 28 yo M)Acc No.[id number]:05/11/2024 Patient: Gurdeep Prashant romero :1995 A ge:28 Y S ex:Male Address:[address] [place] [address], [facility] [address] , [place], [address] Subjective: * Chief Complaints: * R eferral * Medical History: * Surgical History: * Hospitalization/Major Diagno stic Procedure: * Medications: Objective: Assessment: Plan: * Treatment: * Procedure Codes: * true * Date: Generated for Dagoberto linares/Saran/eTransmitting on: 12/31/2024 11:54 AM EST Consultation Request Notes Referral Date Referring Provider Referred Provider Not es 05/12/2024 Dajuan Forbes [facility], [facility] Consult and Treat
--- OUTSIDE RECORDS SUMMARY | 2024-09-21 09:45 | XMS_ITS ---
Author Organization Dajuan Forbes III, MD Address [address] [place] [address] Care Team Providers Care Sugar Controller Name Role Phone Dr. Dajuan Forbes III Primary Care Provider Allergies Allergen (clinical drug ingredient) Drug/Non Drug Allergy documented on EMR Reaction Allergy Type Onset Date Status No Known Drug Allergy Unknown Drug Allergy Active REASON FOR VISIT Annual Exam Medications Medication SIG (Take, Route, Frequency, Duration) Notes Start Date End Date Status Levothyroxine Sodium 150 MCG TAKE 1 TABL ET BY MOUTH DAILY IN THE MORNING ON AN EMPTY STOMACH Active Social History Tobacco Use: Social History Observation Description Date Details (start date - stop date) Never Smoker NA - NA Sex Assigned At : Social History Observation Description Sex Assigned At Male Tobacco Use/Smoking Question Answer Notes Patient is a nonsmoker Additional Findings: Tobacco Non-User Aggressive non-smoker Problems Problem Type SNOMED Code ICD Code Onset Dates Problem Status W/U Status Risk Notes Problem 489265854 Overweight (E66.3) Active confirmed His body mass index is slightly over 25. We discussed diet and nutrition today. Problem 771008034 Right anterior knee pain (M25.561) Active confirmed He was educated about patellofemoral syndrome. He will strengthen his quadriceps. He will notify me if the pain returns. Vital Signs Temperature 99.5 degrees Fahrenheit 09/21/20 24 Blood pressure systolic 132 mm Hg 09/21/20 24 Blood pressure diastolic 75 mm Hg 024 Heart Rate 78 /min 09/21/2024 Height 70 in 09/21/2024 Weight 177 lbs 09/21/2024 BMI 25.39 kg/m2 09/21/2024 Encounters Encounter Location Date Provider Diagnosis Dajuan Forbes III, MD [address] [place] [address] [address] [place] [address] 09/21/2024 Dajuan Forbes Papillary carcinoma of thyroid C73 ; Patellofemoral syndrome of right knee M22.2X1 ; Right anterior knee pain M25.561 and Overweight E66.3 Assessments Encounter Date Diagnosis (ICD Code) Assessment Notes Treat ment Notes Treatment Clinical Notes 09/21/2024 Papillary 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 He remains in remission without symptoms. 09/21/2024 Patellofemoral syndrome of right knee (ICD-10 - M22.2X1) He has completed the physical therapy and the pain in his knee has resolved. 09/21/2024 Right anterior knee pain (ICD-10 - M25.561) He was educated about patellofemoral syndrome. He will strengthen his quadriceps. He will notify me if the pain returns. 09/21/2024 Overweight (ICD-10 - E66.3) His body mass index is slightly over 25. We discussed diet and nutrition today. Plan Of Treatment Medication Medication Name Sig Start Date Stop Date Notes Levothyroxine Sodium 150 MCG TAKE 1 TABL ET BY MOUTH DAILY IN THE MORNING ON AN EMPTY STOMACH Pending Test Test Name Order Date PROFILE, FASTING (COMPREHENSIVE METABOLI C) 09/21/2024 TSH (THYROID STIMULATING HORMONE) 2023 CBC w DIFF 09/21/2024 Lipid Panel 09/21/2024 Free T4 (Free Thyroxine) 09/21/2024 Next Appt Details Follow Up: 1 Year, Once a ye ar or as needed, Reason: annual exam review labs, Routine check-up Provider Name:Dajuan Forbes , 11/12/2025 02:00:00 PM, [address] [place] [address] [address], [place], [address], Progress Notes * Prashant FARRELLDOMatteo:1995 ( 29 yo M)Acc No.[id number]:09/21/2024 Progress Notes Patient: Prashant MILES Provider: Zuleika Forbes MD :1995 A ge:29 Y S ex:Male Date:09/21/2024 Address:[address] , [place], [id number] Subjective: * Chief Complaints: * A nnual Exam * HPI: D epression Screening: PHQ-9 L ittle interest or pleasure in doing things?Not at all F eeling down, depressed, or hopeless N ot at all T rouble falling or staying asleep, or sleeping too much N ot at all F eeling tired or having little energy N ot at all P oor appetite or overeating N ot at all F eeling bad about yourself or that you are a failure, or have let yourself or your family down N ot at all T rouble concentrating on things, such as reading the newspaper or watching television N ot at all M oving or speaking so slowly that other people could have noticed; or the opposite, being so fidgety or restless that you have been moving around a lot more than usual N ot at all T houghts that you would be better off or of hurting yourself in some way N ot at all T otal Score 0 C OVID-19 Screening: Questions H ave you experienced fever, chills, cough, sore throat, shortness of breath, difficulty breathing, muscle aches, loss of taste or smell? N o H ave you been exposed to the virus within the last 10 days? N o H ave you travelled internationally in the last 10 days? N o H ave you been exposed to COVID-19 in the past? N o S GABRIEL Questions: SDOH Questions I n the past year have you been worried about losing your housing? N o I n the past year have you or any family members you live with been unable to get any of the following when it was really needed? Check all that apply: N one * : The patient, a 29-year-old male, came in for a routine check-up. He reported no specific complaints or symptoms. He has a history of thyroid cancer, which was detected five years ago in 2019. The patient's thyroid medication was recently adjusted to 175mg. He reported no issues with his eyesight, hearing, joints, skin, bowel, or bladder. He also reported no relapse of his thyroid condition. Comprehensive blood work has been done by endocrinology and was reviewed in the database at [facility]. It was stable. He will have comprehensive blood work prior to his next annual examination. No significant abnormalities were found today. He seems to be healthy and well. * ROS: G eneral/Constitutional: pain O ccasional pain, right knee, otherwise only normal aches and pains. C hills d enies. F atigue a dmits. F ever d enies. E NT: Decreased hearing d enies. R espiratory: Cough d enies. C ardiovascular: Chest pain with exertion d enies. D yspnea on exertion?denies. S hortness of breath d enies. G astrointestinal: Constipation o ccasional. D ecreased appetite d enies. D iarrhea d enies. H eartburn d enies. N ausea d enies. R ectal bleeding d enies. V omiting d enies. H ematology: bruising d enies. p etechiae d enies. S wollen glands n one have been noted. G enitourinary: Frequent urination d enies. M usculoskeletal: Muscle aches d enies. P ainful joints I ntermittent pain, right knee. S ciatica d enies. W eakness d enies. S kin: Itching d enies. R stevan d enies. S kin lesion(s)?denies. N eurologic: Difficulty speaking d enies. D izziness d enies.?Headache d enies. L ow back pain d enies. P sychiatric: Depressed mood d enies. * Medical History: * Surgical History: t hyroidectomy [facility] 01/2020dental extractions No history * Hospitalization/Major Diagno stic Procedure: N o history * Family History: F ather: alive 58 yrs. M other: alive 51 yrs. S iblings: alive. 1 sister(s) - healthy. . There is no family history of endocrine cancer. There is a history of breast cancer in 2 of his grandparents. There is no history of ovarian cancer. His mother and father are healthy and well. * Social History: T obacco Use: T obacco Use/Smoking P atient is a n onsmoker A dditional Findings: Tobacco Non-User A ggressive non-smoker Katya reyez was born in [facility]. He does not smoke tobacco. He is single and has no children. * Medications: T akingLevothyroxine Sodium 175 MCG Capsule 1 tablet Orally Once a day Medication List reviewed and reconciled with the patientTaking Levothyroxine Sodium 175 MCG Capsule 1 tablet Orally Once a day Medication List reviewed and reconciled with the patient * Allergies: N o Known Drug Allergyno[Allergies Verified] Objective: * Vitals: H t: 70, Wt: 177, BMI:25.39, BP: 132/75, HR: 78, Temp: 99.5, Wt-k.29. * Examination: G eneral Examination: GENERAL APPEARANCE: p leasant, well nourished, well developed, in no acute distress, calm and relaxed, overweight, man. HEAD: a traumatic, normocephalic. EYES: e abraham, perrla, anicteric, conjugate. EARS: n ormal. NOSE: s eptum intact. ORAL CAVITY: n ormal, unremarkable. NECK/THYROID: n o jugular venous distention, no carotid bruit, Surgical scar present, no palpable abnormality. LYMPH NODES: n o enlarged lymph nodes,spleen normal. SKIN: n o suspicious lesions, anicteric. HEART: n o clicks, gallops, murmurs, or rubs, regular rhythm, S1, S2 normal, no s3, or vascular bruits. LUNGS: c lear to auscultation . BREASTS: no masses palpable bilaterally. ABDOMEN: b owel sounds normal, no ascites, no organomegaly, no mass, overweight. RECTAL EXAM: n ot examined. MUSCULOSKELETAL: e xtremities unremarkable, no clubbing, cyanosis or edema. PERIPHERAL PULSES: n ormal. NEUROLOGIC: a lert and oriented, cranial nerves 2-12 grossly intact, deep tendon reflexes 2+ symmetrical, motor strength normal upper and lower extremities, sensory exam intact. PSYCH: a lert, oriented. Assessment: * Assessment: 1. P apillary carcinoma of thyroid - C73 (Primary) N otes :He is followed regularly by endocrinology. He remains in remission without symptoms. 2 . P atellofemoral syndrome of right knee - M22.2X1 N otes :He has completed the physical therapy and the pain in his knee has resolved. 3 . R ight anterior knee pain - M25.561 N otes :He was educated about patellofemoral syndrome. He will strengthen his quadriceps. He will notify me if the pain returns. 4 . O verweight - E66.3 N otes :His body mass index is slightly over 25. We discussed diet and nutrition today. Plan: * Treatment: 2. O thers Continue Levothyroxine Sodium Tablet, 150 MCG, TAKE 1 TABLET BY MOUTH DAILY IN THE MORNING ON AN EMPTY STOMACH. * Procedure Codes: * Preventive Medicine: Counseling: C are goal follow-up plan: Counseling for abnormal BMI given Y es Above Normal BMI Follow-up D ietary needs education, Exercise promotion: strength training * Follow Up: 1 Year, Once a year or as needed (Reason: annual exam review labs, Routine check-up) * Images: * Sign off status: Completed true * Provider: Zuleika Forbes MD Date: 11/21/2023 Generated for Dagoberto linares/Saran/Tinysmitting on: 12/31/2024 11:53 AM EST History and Physical Notes * HPI (History of Present Illness) Category Sub-Category Detail Notes Depression Screening PHQ-9 Little inte rest or pleasure in doing things: Not at all Feeling down, depressed, or hopeless: No t at all Trouble falling or staying asleep, or sl eeping too much: Not at all Feeling tired or having little energy: N ot at all Poor appetite or overeating: Not at all Feeling bad about yourself o r that you are a failure, or have let yourself or your family down: Not at all Trouble concentrating on thi ngs, such as reading the newspaper or watching television: Not at all Moving or speaking so slowly that other people could have noticed; or the opposite, being so fidgety or restless that you have been moving around a lot more than usual: Not at all Thoughts that you would be b juanis off or of hurting yourself in some way: Not at all Total Score: 0 COVID-19 Screening Questions Have you had any new onset fever, chills, cough, congestion, sore throat, shortness of breath, muscle aches?: No Have you been exposed to the virus withi n the last 10 days?: No Have you travelled internationally in [facility] last 10 days?: No Have you been exposed to COVID-19 in the past?: No SDOH Questions SDOH Questions In the past year have you been worried about losing your housing?: No In the past year have you or any family members you live with been unable to get any of the following when it was really needed? Check all that apply:: None Examination Category Sub-Category Detail Notes General Examination GENERAL APPEARANCE: pleasant , well nourished, well developed, in no acute distress, calm and relaxed, overweight, man HEAD: atraumatic, normocep halic EYES: eomi, perrla, anicte kameron, conjugate EARS: normal NOSE: septum intact NECK/THYROID: no jugular venous di stention, no carotid bruit, Surgical scar present, no palpable abnormality HEART: no clicks, gallops, murmurs, or rubs, regular rhythm, S1, S2 normal, no s3, or vascular bruits LUNGS: clear to auscultatio n ABDOMEN: bowel sounds normal, no ascites, no organomegaly, no mass, overweight NEUROLOGIC: alert and oriented, cranial nerves 2-12 grossly intact, deep tendon reflexes 2+ symmetrical, motor strength normal upper and lower extremities, sensory exam intact SKIN: no suspicious lesion s, anicteric PERIPHERAL PULSES: normal BREASTS: no masses palpable b ilaterally MUSCULOSKELETAL: extremities unremark able, no clubbing, cyanosis or edema LYMPH NODES: no enlarged lymph no ria,spleen normal RECTAL EXAM: not examined PSYCH: alert, oriented ORAL CAVITY: normal, unremarkable
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
--- OUTSIDE RECORDS SUMMARY | 2025-05-04 06:30 | XMS_ITS ---
Author Organization Dajuan Forbes III, MD Address [address] [place] [address] [place] [address] Care Team Providers Care Retail Marketing Coordinator Name Role Phone Dr. Dajuan Forbes III Primary Care Provider Allergies Allergen (clinical drug ingredient) Drug/Non Drug Allergy documented on EMR Reaction Allergy Type Onset Date Status No Known Drug Allergy Unknown Drug Allergy Active REASON FOR VISIT Right hip ecchymosis Medications Medication SIG (Take, Route, Frequency, Duration) [...] Findings: Tobacco Non-User Aggressive non-smoker Vital Signs Height 70 in 05/04/2025 Weight 185 lbs 05/04/2025 BMI 26.54 kg/m2 05/04/2025 Encounters Encounter Location Date Provider Diagnosis Dajuan Forbes III, MD [address] [place] [address] [place] [address] 05/04/2025 Dajuan Forbes Hematoma T14.8XXA ; Overweight E66.3 ; Patellofemoral syndrome of right knee M22.2X1 ; Papillary carcinoma of thyroid C73 and Right anterior knee pain M25.561 Assessments Encounter Date Diagnosis (ICD Code) Assessment Notes Treat ment Notes Treatment Clinical Notes 05/04/2025 Hematoma (ICD-10 - T14.8XXA) He is feeling more mobile than the pain is decreasing. The ecchymosis has spread but the hematoma is smaller. He will refrain from exertion for 1 more week and then resume normal activities and office visits. 05/04/2025 Overweight (ICD-10 - E66.3) His body mass index is slightly over 25. We discussed diet and nutrition today. 05/04/2025 Patellofemoral syndrome of right knee (ICD-10 - M22.2X1) He has completed the physical therapy and the pain in his knee has resolved. 05/04/2025 Papillary 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 He remains in remission without symptoms. 05/04/2025 Right anterior knee pain (ICD-10 - M25.561) He was educated about patellofemoral syndrome. He will strengthen his quadriceps. He will notify me if the pain returns. Plan Of Treatment Medication Medication Name Sig Start Date Stop Date Notes Levothyroxine Sodium 150 MCG TAKE 1 TABL ET BY MOUTH DAILY IN THE MORNING ON AN EMPTY STOMACH Next Appt Details Follow Up: As Scheduled, Tiny son: Annual Exam Provider Name:Dajuan Forbes , 11/12/2025 02:00:00 PM, [address] [place] [address] [place], [address], Progress Notes * Prashant FARRELLDOB:1995 ( 29 yo M)Acc No.[id number]:05/04/2025 Patient: Prashant MILES Provider: Zuleika Forbes MD :1995 A ge:29 Y S ex:Male Date:05/04/2025 Address:[address] [place] [address], [facility] Subjective: * Chief Complaints: * R ight hip ecchymosis * HPI: * : This telehealth visit took place over 15 minutes with the patient at home and me in my office. He gave consent for billing. The pain in the right hip and right thigh is slowly improving and he has developed more mobility. X-rays of the area showed no fractures. The ecchymosis now extends from above the hip joint down to the right knee. He wants to know if he can resume exercise. He was told to resume exercise slowly beginning a week from now. He is doing quite well. Telehealth L ocation of provider rendering services: { ...} [address] [facility] [address] L ocation of patient: luh steve listed in demographics for today's visit P atient identification confirmed using: MARIAMA Adames ame T elehealth method: T elephone only. Patient not visible to care provider. C onsent: P atient verbally consented to treatment, Patient verbally consented to billing insurance company, Patient informed of any privacy concerns related to method of visit T otal time spent with patient (mins) 1 5 * ROS: G eneral/Constitutional: pain R ight hip and thigh. C hills d enies. F atigue a dmits. F ever d enies. E NT: Decreased hearing d enies. R espiratory: Cough d enies. C ardiovascular: Chest pain with exertion d enies. D yspnea on exertion?denies. S hortness of breath d enies. G astrointestinal: Constipation d enies. D ecreased appetite d enies.?Diarrhea d enies. [...] * Medical History: * [facility] No [facility] * Hospitalization/Major Diagno [...] ggressive non-smoker Katya reyez was born in [facility]. He does not smoke tobacco. He [...] Vitals: H t: 70, Wt: 185, BMI:26.54, Ht-cm: 177.8, Wt-k.91. Assessment: * Assessment: 1. H ematoma - T14.8XXA (Primary) N otes :He is feeling more mobile than the pain is decreasing. The ecchymosis has spread but the hematoma is smaller. He will refrain from exertion for 1 more week and then resume normal activities and office visits. 2 . O verweight - E66.3 N otes :His body mass index is slightly over 25. We discussed diet and nutrition today. 3 . P atellofemoral syndrome of right knee - M22.2X1 N otes :He has completed the physical therapy and the pain in his knee has resolved. 4 . P apillary carcinoma of thyroid - C73 N otes :He is followed regularly by endocrinology. He remains in remission without symptoms. 5 . R ight anterior knee pain - M25.561 N otes :He was educated about patellofemoral syndrome. He will strengthen his quadriceps. He will notify me if the pain returns. Plan: * Treatment: * Procedure Codes: 9 8012 SYNCH AUDIO-ONLY EST SF 10 * Preventive Medicine: Counseling: C are goal [...] Other reason not done * Follow Up: A s Scheduled (Reason: Annual Exam) * Images: * Sign off status: Completed true * Provider: Zuleika Forbes MD Date: 0 05/04/2025 Generated for Dagoberto linares/Saran/Tinysmitting on: 1 12/31/2024 11:54 AM EST History and Physical Notes * HPI (History of Present Illness) Category Sub-Category Detail Notes [facility] {...} [address] [place] [address] Location of patient:: address listed in demographics for today's visit Patient identification confirmed using:: Name, Telehealth method:: Telephone only. Sailaja ent not visible to care provider. Consent:: Patient verbally c onsented to treatment, Patient verbally consented to billing insurance company, Patient informed of any privacy concerns related to method of visit Total time spent with patient (mins): 15
--- OUTSIDE RECORDS SUMMARY | 2025-09-22 12:00 | XMS_ITS ---
Author Organization Dajuan Forbes III, MD Address [address] [place] [address] [address] [facility] [place] [address] Care Team Providers Care Ssrs Report Developer Name Role Phone Dr. Dajuan Forbes III Primary Care Provider [phone] REASON FOR VISIT Annual Exam Social History Sex Assigned At : Social History Observation Description Sex Assigned At Male Encounters Encounter Location Date Provider Diagnosis Dajuan Forbes III, MD [address] [place] [address] [place] [address] 09/22/2025 Dajuan Forbes Plan Of Treatment Next Appt Details Provider Name:Dajuan Forbes , 11/12/2025 02:00:00 PM, [address] [place] [address] [address], [place], [address], Progress Notes * Prashant FARRELLDOB:1995 ( 30 yo M)Acc No.[id number]:09/22/2025 Progress Notes Patient: Prashant MILES Provider: Zuleika Forbes MD :1995 A ge:30 Y S ex:Male Date:09/22/2025 Address:[address] [place] [address] [address] , [place]-[address] Subjective: * Chief Complaints: * 1 . Annual Exam. * Medical History: Objective: * Vitals: Assessment: Plan: * Treatment: * Images: * The named appointment provid er may or may not be the originator of this progress note, and it is not deemed complete until electronically signed by the appointment provider. Sign off status: Pending * Provider: Zuleika Forbes MD Date: 11/22/2024 Generated for Dagoberto linares/Saran/Melissa on: 12/31/2024 11:53 AM EST
--- OUTSIDE RECORDS SUMMARY | 2025-10-30 11:55 | XMS_ITS | Patient Health Record ---
Author Organization Dajuan Forbes III, MD Address [address] [place] [address] Care Team Providers Care Field Staff Manager Name Role Phone Dr. Dajuan Forbes III Primary Care Provider Allergies Allergen (clinical drug ingredient) Drug/Non Drug Allergy documented on EMR Reaction Allergy Type Onset Date Status No Known Drug Allergy Unknown Drug Allergy Active Results Component Value Reference Range Notes Free T4 (Free Thyroxine) Reviewed date:05/02/2025 05:47:51 PM Interpretation: Performing Lab:[facility], [address] [place] [phone] Notes/Report: Free T4 (Free Thyroxine) 1.28 0.71-1.85 ng/dL Thyroid Stimulating Hormone Reviewed date:05/02/2025 05:47:51 PM Interpretation: Performing Lab:[facility], [address] [place] [phone] Notes/Report: Thyroid Stimulating Hormone 0.31 0.32-4.0 uIU/mL TSH 3rd Generation ([facility]) XR hip RT w PEL1V Reviewed date:05/02/2025 05:47:51 PM Interpretation: Performing Lab: Notes/Report: [address] [address] XRay Report Signed Patient: Prashant Solano MR#: [id number] : 1995 Acct:[id number] Age/Sex: 29 / M ADM Date: 04/30/25 Loc: HO.XRAY Attending Dr: Dajuan Forbes MD Ordering Physician: Dajuan Forbes MD Date of Service: 04/30/25 Procedure(s): XR hip RT w PEL1V Accession Number(s): [id number] cc: Dajuan Forbes MD CLINICAL HISTORY: right [...] in OV> 05/01/25854 DD/ 4 TD/TT: 05/01/25854 Storeperson: [address] [address] XRay Report Signed Patient: Prashant Solano MR#: [id number] : 1995 Acct:[id number] Age/Sex: 29 / M ADM Date: 04/30/25 Loc: HO.XRAY Attending Dr: Dajuan Forbes MD Ordering Physician: Dajuan Forbes MD Date of Service: 04/30/25 Procedure(s): XR hip RT w PEL1V Accession Number(s): [id number] cc: Dajuan Forbes MD CLINICAL HISTORY: ri [...] in OV> 05/01/2555 DD/ 4 TD/TT: 05/01/25854 Storeperson: XR femur RT 2V Reviewed date:05/02/2025 05:47:51 PM Interpretation: Performing Lab: Notes/Report: [address] [address] XRay Report Signed Patient: Prashant Solano MR#: [id number] : 1995 Acct:[id number] Age/Sex: 29 / M ADM Date: 04/30/25 Loc: HO.XRAY Attending Dr: Dajuan Forbes MD Ordering Physician: Dajuan Forbes MD Date of Service: 04/30/25 Procedure(s): XR femur RT 2V Accession Number(s): [id number] cc: Dajuan Forbes MD CLINICAL HISTORY: right [...] 05/01/25 0855 DD/ 3 TD/TT: 05/01/25 0854 Storeperson: [place] [address] XRay Report Signed Patient: Prashant Solano MR#: [id number] : 1995 Acct:[id number] Age/Sex: 29 / M ADM Date: 04/30/25 Loc: HO.XRKATHYA Attending Dr: Dajuan Forbes MD Ordering Physician: Dajuan Forbes MD Date of Service: 04/30/25 Procedure(s): XR fem ur RT 2V Accession Number(s): [id number] cc: Dajuan Forbes MD CLINICAL HISTORY: ri [...] Joy MD in OV> 05/01/25 0855 DD/ 0854 TD/TT: 05/01/25 0854 Storeperson: US soft tiss head and/or nec k Reviewed date:08/27/2025 05:03:39 PM Interpretation: Performing Lab: Notes/Report: [address] [address] Ultrasound Report Signed Patient: Prashant Solano MR#: [id number] : 1995 Acct:[id number] Age/Sex: 30 / M ADM Date: 08/24/25 Loc: HO.US Attending Dr: Neela Mejias MD Ordering Physician: Neela Mejias MD Date of Service: 08/24/25 Procedure(s): US soft tiss head and/or neck Accession Number(s): [id number] cc: Dajuan Forbes MD; Neela Mejias MD Reason for Exam: Z85.850 - Personal history of malignant neoplasm of thyroid EXAMINATION: US THYROID CLINICAL INFORMATION: Malignant neoplasm of thyroid.. Thyroidectomy 01/2020 COMPARISON: None available. TECHNIQUE: Linear transducer villanueva-scale and color Doppler examination with attention to the region of the thyroid. FINDINGS: [Bladder has been surgically removed with no residual thyroid seen. LYMPH NODES: RIGHT NECK: 1. Level 1B lymph node measures 1.3 x 0.3 x 1.2 cm. It has normal echogenic medulla. Previously measured 0.8 x 0.3 x 1 0.8 cm. 2. Level 3 lymph node measures 2.4 x 0.6 x 1.7 cm. There is normal echogenic medulla. Previously it measured 2.1 x 0.5 x 2.1 cm. 3. Level 5B lymph node measures 0.9 x 0.3 x 0.7 cm. It has normal echogenic medullary. It is new since the previous exam. 4. Level 3 lymph node measures 0.7 x 0.4 x 0.7 cm. It has normal echotexture. LEFT NECK: 1. Level 1B lymph node measures 1.3 x 0.4 x 1.3 cm. It has normal echotexture. Use it measured 1.4 x 0.4 x 1.2 cm. 2. Level 3 lymph node measures 3.6 x 0.6 x 1.3 cm. It has normal echotexture. Previously it measured 3.5 x 0.5 x 1.3 cm. No additional lymph nodes seen. US/US soft tiss head and/or neck IMPRESSION: Bilateral neck lymph nodes which are normal in echotexture and unchanged to previous exam 08/11/2024. No residual thyroid tissue visualized.. Electronically signed by: Willi Keith MD 08/25/2025 08:06 AM EDT RP Dictated By: Willi Keith MD Signed By: <Electronically signed by Willi Keith MD in OV> 08/25/25 0806 DD/ 1614 TD/TT: 08/24/25 1625 Storeperson: [place] [address] Ultrasound Report Signed Patient: Prashant Solano MR#: [id number] : 1995 Acct:[id number] Age/Sex: 30 / M ADM Date: 08/24/25 Loc: HO.US Attending Dr: Neela Mejias MD Ordering Physician: Neela Mejias MD Date of Service: 08/24/25 Procedure(s): US sof t tiss head and/or neck Accession Number(s): [id number] cc: Dajuan Forbes MD; Neela Mejias MD Reason for Exam: Z85 .850 - Personal history of malignant neoplasm of thyroid EXAMINATION: US THYROID CLINICAL INFORMATION: Malignant neoplasm o f thyroid.. Thyroidectomy 01/2020 COMPARISON: None available. TECHNIQUE: Linear transducer villanueva-scale and color Doppler examination with attention to the reg ion of the thyroid. FINDINGS: [Bladder has been surgically removed with no residual thyroid seen. LYMPH NODES: RIGHT NECK: 1. Level 1B lymph no de measures 1.3 x 0.3 x 1.2 cm. It has normal echogenic medulla. Previously measured 0.8 x 0.3 x 1 0.8 cm. 2. Level 3 lymph nod e measures 2.4 x 0.6 x 1.7 cm. There is normal echogenic medulla. Previously it measur ed 2.1 x 0.5 x 2.1 cm. 3. Level 5B lymph no de measures 0.9 x 0.3 x 0.7 cm. It has normal echogenic medullary. It is new since the previous exam. 4. Level 3 lymph nod e measures 0.7 x 0.4 x 0.7 cm. It has normal echotexture. LEFT NECK: 1. Level 1B lymph no de measures 1.3 x 0.4 x 1.3 cm. It has normal echotexture. Use it measured 1.4 x 0.4 x 1.2 cm. 2. Level 3 lymph nod e measures 3.6 x 0.6 x 1.3 cm. It has normal echotexture. Previou sly it measured 3.5 x 0.5 x 1.3 cm. No additional lymph nodes seen. U S/US soft tiss head and/or neck IMPRESSION: Bilateral neck lymph nodes which are normal in echotexture and unchanged to previou s exam 08/11/2024. No residual thyroid tissue visualized.. Electronically jimmy d by: Willi Keith MD 08/25/2025 08:06 AM EDT RP Dictated By: Mr dickson Keith MD Signed By: <Electronically signed by Willi Keith MD in OV> 08/25/25 0806 DD/ 1614 TD/TT: 08/24/25 1625 Storeperson: [facility] Reason For Referral No Information Medications Medication [...] Problem Status W/U Status Risk Notes Problem 414539866 Overweight (E66.3) Active confirmed His body mass index is slightly over 25. We discussed diet and nutrition today. Problem 219971535 Right anterior knee pain (M25.561) Active confirmed He was educated about patellofemoral syndrome. He will strengthen his quadriceps. He will notify me if the pain returns. Problem 085660970 Papillary carcinoma of thyroid (C73) Active confirmed He is followed regularly by endocrinology. He remains in remission without symptoms. Problem [id number] Patellofemoral syndrome of right knee (M22.2X1) Active [...] Date Provider Diagnosis Dajuan Forbes III, MD [address] [place] [address] [place] [phone] 04/30/2025 Dajuan Forbes Injury of right hip, initial encounter S79.911A ; Papillary carcinoma of thyroid C73 ; Patellofemoral syndrome of right knee M22.2X1 ; Overweight E66.3 and Right anterior knee pain M25.561 Dajuan Forbes III, MD [address] [place] [address] [place] [phone] 05/04/2025 Dajuan Forbes Hematoma T14.8XXA ; Overweight E66.3 ; Patellofemoral syndrome of right knee M22.2X1 ; Papillary carcinoma of thyroid C73 and Right anterior knee pain M25.561 Assessments Encounter Date Diagnosis (ICD Code) Assessment Notes Treat ment Notes Treatment Clinical Notes 04/30/2025 Papillary carcinoma of thyroid (ICD-10 - [...] then resume normal activities and office visits. 04/30/2025 Patellofemoral syndrome of right knee (ICD-10 [...] Provider Name:Dajuan Forbes , 11/12/2025 02:00:00 PM, [address] [place] [address] , [address], [place], [address], Insurance Providers Payer Name Payer Address Payer Phone Subscriber Number Group Number Insured Name Patient Relationship to Insured Coverage Start Date Coverage End Date [facility] [address] [place], [place] [id number] [phone] [id number] Prashant Solano Self - patient is the insured Medical (General) History Medical History History ICD Code Hypothyroidism E03.9 papillary thyroid carcinoma October with thyroidectomy right knee pain Thyroid Cancer detected in 2019 Surgical History Surgery Date(Month/Year) No history dental extractions [facility] 01/29 20 Hospitalization History Reason Date(Month/Year) No history
[2025-10-30 14:44] LABS: Free T4 (Free Thyroxine) 1.24 ng/dL (0.71-1.85); Thyroid Stimulating Hormone 0.95 uIU/mL (0.32-4.0)
[2025-11-01 17:37] LABS: Thyroglobulin Antibodies 27 IU/mL (< or = 1)
== END 2025-10-30 11:52 | disposition home or self-care (01) ==
LOC: HO.HMGCLDS 11:51
PROVIDERS: PCP Internal Medicine Medical Oncology; Visit Provider Student in an Organized Health Care Education/Training Program
DX: E89.0 Postprocedural hypothyroidism (principal); Z85.850 Personal history of malignant neoplasm of thyroid
CPT/HCPCS: 36415; 84432; 84439; 84443; 86800

== ENCOUNTER 2025-11-10 09:21 | Outpatient (AMB) | payer BC, SELFPAY ==
--- OUTSIDE RECORDS SUMMARY | 2024-05-11 10:22 | XMS_ITS ---
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 Dajuan Forbes III Primary Care Provider [phone] Reason For Referral Reason Consult and Treat Diagnosis 1 Papillary carcinoma of thyroid (C73) Referral Organization Dajuan Forbes III, MD Referring Provider First Name Dajuan Referring Provider Last Name Leidy Referring Provider Speciality Internal M edicine Referred Provider [facility] Referred Provider Specialty Endocrinolog y General Notes Jeanna Bianchi 2023 11:07:49 AM EDT > Faxed with last progress note and referral. Referral Priority Routine Referral Appointment Date 06/02/2024 REASON FOR VISIT Referral Social History Sex Assigned At : Social History Observation Description Sex Assigned At Male Encounters Encounter Location Date Provider Diagnosis Dajuan Forbes III, MD [address] [place] [address] [place] [address] 05/11/2024 Dajuan Forbes Plan Of Treatment Referrals Referral Date Details 05/12/2024 05/12/2024, Consult and Treat, [facility] Next Appt Details Provider Name:Dajuan Forbes , 11/12/2025 02:00:00 PM, [address] [place] [address] [place], [phone], Progress Notes * Prashant FARRELLDOB:1995 ( 28 yo M)Acc No.[id number]:05/11/2024 Patient: Gurdeep Prashant romero :1995 A ge:28 Y S ex:Male Address:[address] [place] [address], [facility] [address] , [place], [address] Subjective: * Chief Complaints: * R eferral * Medical History: * Surgical History: * Hospitalization/Major Diagno stic Procedure: * Medications: Objective: Assessment: Plan: * Treatment: * Procedure Codes: * true * Date: Generated for Dagoberto linares/Saran/eTransmitting on: 09:38 AM EST Consultation Request Notes Referral Date Referring Provider Referred Provider Not es 05/12/2024 Dajuan Forbes [facility], [facility] Consult and Treat
--- OUTSIDE RECORDS SUMMARY | 2024-09-21 09:45 | XMS_ITS ---
Author Organization Dajuan Forbes III, MD Address [address] [place] [address] Care Team Providers Care Obstetrics/Gynecology Nurse Name Role Phone Dr. Dajuan Forbes III [...] Problem Status W/U Status Risk Notes Problem [id number] Overweight (E66.3) Active confirmed His body mass index is slightly over 25. We discussed diet and nutrition today. Problem [id number] Right anterior knee pain (M25.561) Active confirmed [...] Date Provider Diagnosis Dajuan Forbes III, MD [address] [place] [address] [address] [place] [address] 09/21/2024 Dajuan Forbes Papillary carcinoma of thyroid [...] Provider Name:Dajuan Forbes , 11/12/2025 02:00:00 PM, [address] [place] [address] [address], [place], [address], Progress Notes * Prashant FARRELLDOMatteo:1995 ( 29 yo M)Acc No.[id number]:09/21/2024 Progress Notes Patient: Prashant MILES Provider: Zuleika Forbes MD :1995 A ge:29 Y S ex:Male Date:09/21/2024 Address:[address], [address] , [place], [id number] Subjective: * Chief Complaints: * A nnual [...] and was reviewed in the database at [facility]. It was stable. He will have [...] ggressive non-smoker Katya reyez was born in [facility]. He does not smoke tobacco. He is [...] Date: 11/21/2023 Generated for Dagoberto linares/Saran/Tinysmitting on: 09:37 AM EST History and Physical Notes * [...] days?: No Have you travelled internationally in [facility] last 10 days?: No Have you [...]
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
--- OUTSIDE RECORDS SUMMARY | 2025-05-04 06:30 | XMS_ITS ---
Author Organization Dajuan Forbes III, MD Address [address] [place] [address] [place] [address] Care Team Providers Care Assistant Manager Airside Operations Name Role Phone Dr. Dajuan Forbes III [...] Provider Diagnosis Dajuan Forbes III, MD [address] [place] [address] [place] [address] 05/04/2025 Dajuan Forbes Hematoma T14.8XXA ; Overweight [...] Name:Dajuan Forbes , 11/12/2025 02:00:00 PM, [address] [place] [address] [place], [address], Progress Notes * Prashant FARRELLDOB:1995 ( 29 yo M)Acc No.[id number]:05/04/2025 Patient: Prashant MILES Provider: Zuleika Forbes MD :1995 A ge:29 Y S ex:Male Date:05/04/2025 Address:[address] [place] [address], [facility] Subjective: * Chief Complaints: * R [...] of provider rendering services: { ...} [address] [facility] [address] L ocation of patient: luh steve listed [...] * Medical History: * [facility] No [facility] * [...] ggressive non-smoker Katya reyez was born in [facility]. He does not smoke tobacco. He [...] 0 05/04/2025 Generated for Dagoberto linares/Saran/Tinysmitting on: 09:38 AM EST History and Physical Notes * HPI (History of Present Illness) Category Sub-Category Detail Notes Telehealth Location of [facility] rendering services:: {...} [address] [place] [address] Location of patient:: address listed in demographics [...]
--- OUTSIDE RECORDS SUMMARY | 2025-09-22 12:00 | XMS_ITS ---
Author Organization Dajuan Forbes III, MD Address [address] [place] [address] [address] [place] [address] Care Team Providers Care Business Development Assistant Name Role Phone Dr. Dajuan Forbes III Primary Care Provider REASON FOR VISIT Annual Exam Social History Sex Assigned At : Social History Observation Description Sex Assigned At Male Encounters Encounter Location Date Provider Diagnosis Dajuan Forbes III, MD [address] [place] [address] [place] [address] 09/22/2025 Dajuan Forbes Plan Of Treatment Next Appt Details Provider Name:Dajuan Forbes , 11/12/2025 02:00:00 PM, [address] [place] [address] [address], [place], [address], Progress Notes * Prashant FARRELLDOB:1995 ( 30 yo M)Acc No.[id number]:09/22/2025 Progress Notes Patient: Prashant MILES Provider: Zuleika Forbes MD :1995 A ge:30 Y S ex:Male Date:09/22/2025 Address:[address] [place] [address] [address] , [place], [place]-[address] Subjective: * Chief Complaints: * 1 [...] Date: 11/22/2024 Generated for Dagoberto linares/Saran/Melissa on: 09:36 AM EST
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
[2025-11-10 09:30] VITALS: BP 112/74; PULSE 69; O2SAT 98; BMI 26.7
--- OUTSIDE RECORDS SUMMARY | 2025-11-10 09:39 | XMS_ITS | Patient Health Record ---
Author Organization Dajuan Forbes III, MD Address [address] [place] [address] Care Team Providers Care Sustainability Project Manager Name Role Phone Dr. Dajuan Forbes III Primary Care Provider [phone] Allergies Allergen (clinical drug ingredient) Drug/Non Drug Allergy documented on EMR Reaction Allergy Type Onset Date Status No Known Drug Allergy Unknown Drug Allergy Active Results Component Value Reference Range Notes Free T4 (Free Thyroxine) Reviewed date:05/02/2025 05:47:51 PM Interpretation: Performing Lab:[facility], [address] [place] [phone] Notes/Report: Free T4 (Free Thyroxine) 1.28 0.71-1.85 ng/dL Thyroid Stimulating Hormone Reviewed date:05/02/2025 05:47:51 PM Interpretation: Performing Lab:[facility], [address] [place] [phone] Notes/Report: Thyroid Stimulating Hormone 0.31 0.32-4.0 uIU/mL TSH 3rd Generation ([facility]) XR hip RT w PEL1V Reviewed date:05/02/2025 05:47:51 PM Interpretation: Performing Lab: Notes/Report: [address] [address] XRay Report Signed Patient: Prashant Solano MR#: [id number] : 1995 Acct:[id number] Age/Sex: 29 / M ADM Date: 04/30/25 Loc: HO.XRAY Attending Dr: Dajuan Forbes MD Ordering Physician: Dajuan Forbes MD Date of Service: 04/30/25 Procedure(s): XR hip RT w PEL1V Accession Number(s): [id number] cc: Dajuan Forbes MD CLINICAL HISTORY: right [...] in OV> 05/01/2555 DD/ 4 TD/TT: 05/01/25854 Hydroelectric Station Operator Chief: [address] [address] XRay Report Signed Patient: Prashant Solano MR#: [id number] : 1995 Acct:[id number] Age/Sex: 29 / M ADM Date: 04/30/25 Loc: HO.XRAY Attending Dr: Dajuan Forbes MD Ordering Physician: Dajuan Forbes MD Date of Service: 04/30/25 Procedure(s): XR hip RT w PEL1V Accession Number(s): [id number] cc: Dajuan Forbes MD CLINICAL HISTORY: right [...] in OV> 05/01/2555 DD/ 4 TD/TT: 05/01/25854 Hydroelectric Station Operator Chief: XR femur RT 2V Reviewed date:05/02/2025 05:47:51 PM Interpretation: Performing Lab: Notes/Report: [address] [address] XRay Report Signed Patient: Prashant Solano MR#: [id number] : 1995 Acct:[id number] Age/Sex: 29 / M ADM Date: 04/30/25 Loc: HO.XRAY Attending Dr: Dajuan Forbes MD Ordering Physician: Dajuan Forbes MD Date of Service: 04/30/25 Procedure(s): XR femur RT 2V Accession Number(s): [id number] cc: Dajuan Forbes MD CLINICAL HISTORY: right [...] Joy MD in OV> 05/01/25 0855 DD/ TD/TT: 05/01/25 0854 Hydroelectric Station Operator Chief: [place] [address] XRay Report Signed Patient: Prashant Solano MR#: [id number] : 1995 Acct:[id number] Age/Sex: 29 / M ADM Date: 04/30/25 Loc: HO.XRAY Attending Dr: Dajuan Forbes MD Ordering Physician: Dajuan Forbes MD Date of Service: 04/30/25 Procedure(s): XR fem ur RT 2V Accession Number(s): [id number] cc: Dajuan Forbes MD CLINICAL HISTORY: right leg pain --- Additional Notes or Special Instructions: W?O 2 view right femur Comparison: None provided Findings: Proximal femur is excluded from the field of view. No fractures or dislocations. No knee effusion. No significant arthritic change. No radiopaque foreig n body. IMPRESSION: 1. Normal right femur This document has be en electronically signed by: Humberto Joy MD on 05/01/2025 08:54:56 Dictated By: Humberto Joy MD Signed By: <Electronically signed by Humberto Joy MD in OV> 05/01/25 0855 DD/ TD/TT: 05/01/25 0854 Hydroelectric Station Operator Chief: US soft tiss head and/or nec k Reviewed date:08/27/2025 05:03:39 PM Interpretation: Performing Lab: Notes/Report: [address] [address] Ultrasound Report Signed Patient: Prashant Solano MR#: [id number] : 1995 Acct:[id number] Age/Sex: 30 / M ADM Date: 08/24/25 Loc: HO.US Attending Dr: Neela Mejias MD Ordering Physician: Neela Mejias MD Date of Service: 08/24/25 Procedure(s): US soft tiss head and/or neck Accession Number(s): [id number] cc: Dajuan Forbes MD; Neela Mejias MD [...] 08/25/25 0806 DD/ 1614 TD/TT: 08/24/25 1625 Hydroelectric Station Operator Chief: [place] [address] Ultrasound Report Signed Patient: Prashant Solano MR#: [id number] : 1995 Acct:[id number] Age/Sex: 30 / M ADM Date: 08/24/25 Loc: HO.US Attending Dr: Neela Mejias MD Ordering Physician: Neela Mejias MD Date of Service: 08/24/25 Procedure(s): US sof t tiss head and/or neck Accession Number(s): [id number] cc: Dajuan Forbes MD; Neela Mejias MD [...] 08/25/25 0806 DD/ 1614 TD/TT: 08/24/25 1625 Hydroelectric Station Operator Chief: PAPA Thyroglobulin Antibodies (No t yet reviewed by provider) Interpretation: Performing Lab:[address] [address] Notes/Report: Thyroglobulin Antibodies 27 < or = 1 IU/mL THIS TEST WAS PERFORMED AT: [facility] [address] [address] SARAH SCRUGGS MD Thyroglobulin Tumor Marker ( Not yet reviewed by provider) Interpretation: Performing Lab:[facility], [address] [place] [phone] Notes/Report: Thyroglobulin Antibody 28 <=1 IU/mL This Thyroglobulin antibody test was [...] analytical performance characteristics have been determined by [email or web address]. It has not been cleared or approved by the FDA. This assay has been validated pursuant to the CLIA regulations and is used for clinical purposes. Test performed by [facility] [address] [place] [address] International Trade Analyst: Roxy Mittal MD,PHD,JOSE ALEJANDRO Test Reported by [facility], [email or web address][1], [address] [place] [address] Miri Howard M.D., Ph.D., Director of Laboratories , CLIA [id number] THIS TEST WAS PERFORMED AT: [email or web address] [address] MIRI HOWARD MD,PHD Thyroglobulin Level TNP Free T4 (Free Thyroxine) Reviewed date:11/01/2025 05:02:07 PM Interpretation: Performing Lab:[facility], [address] [place] [phone] Notes/Report: Free T4 (Free Thyroxine) 1.24 0.71-1.85 ng/dL Thyroid Stimulating Hormone Reviewed date:11/01/2025 05:02:07 PM Interpretation: Performing Lab:[facility], [address] [place] [phone] Notes/Report: Thyroid Stimulating Hormone 0.95 0.32-4.0 uIU/mL TSH 3rd Generation ([facility]) Reason For Referral No Information Medications Medication [...] Problem Status W/U Status Risk Notes Problem 960093503 Overweight (E66.3) Active confirmed His body mass index is slightly over 25. We discussed diet and nutrition today. Problem 708359132 Right anterior knee pain (M25.561) Active confirmed He was educated about patellofemoral syndrome. He will strengthen his quadriceps. He will notify me if the pain returns. Problem 299488491 Papillary carcinoma of thyroid (C73) Active confirmed He is followed regularly by endocrinology. He remains in remission without symptoms. Problem [id number] Patellofemoral syndrome of right knee (M22.2X1) Active [...] Date Provider Diagnosis Dajuan Forbes III, MD [address] [place] [address] [place] [address] 04/30/2025 Dajuan Forbes Injury of right hip, initial encounter S79.911A ; Papillary carcinoma of thyroid C73 ; Patellofemoral syndrome of right knee M22.2X1 ; Overweight E66.3 and Right anterior knee pain M25.561 Dajuan Forbes III, MD [address] [place] [address] [place] [address] 05/04/2025 Dajuan Forbes Hematoma T14.8XXA ; Overweight [...] Panel 09/18/2023 Free T4 (Free Thyroxine) 09/21/2024 Thyroglobulin Antibodies 10/30/2025 Thyroglobulin Tumor Marker 10/30/2025 Next Appt Details Provider Name:Dajuan Forbes , 11/12/2025 02:00:00 PM, [address] [place] [address] [address], [place], [address], Insurance Providers Payer Name Payer Address Payer Phone Subscriber Number Group Number Insured Name Patient Relationship to Insured Coverage Start Date Coverage End Date [facility] [address] [place], [place] [id number] Prashant Solano Self - patient is the insured Medical (General) History Medical History History ICD Code Hypothyroidism E03.9 papillary thyroid carcinoma October with thyroidectomy right knee pain Thyroid Cancer detected in 2019 Surgical History Surgery Date(Month/Year) No history dental extractions [facility] 01/29 20 Hospitalization History Reason Date(Month/Year) No history
== END 2025-11-10 09:40 | disposition home or self-care (01) ==
LOC: HO.ENCR 09:22
PROVIDERS: PCP Internal Medicine Medical Oncology; Visit Provider Internal Medicine Endocrinology, Diabetes & Metabolism
DX: Z85.850 Personal history of malignant neoplasm of thyroid (principal)
CPT/HCPCS: 99213